=== PATIENT | female | born 1955 | race Caucasian/White ===

== ENCOUNTER → 2017-12-29 | Day surgery (SDC) | payer BC ==
--- NOTE | 2017-12-12 15:16 | Diagnostic Imaging Report ---
EXAMINATION: PA and lateral views of the chest. COMPARISON: None CLINICAL HISTORY: Preadmission for breast surgery DISCUSSION: Lines/tubes: None. Lungs: The lungs are well inflated and clear. No pneumonia or pulmonary edema. Pleura: There is no pleural effusion or pneumothorax. Heart and mediastinum: The cardiomediastinal silhouette is normal. Bones and soft tissues: No acute bony abnormalities. Scattered surgical clips left hemithorax. IMPRESSION: No acute cardiopulmonary abnormalities. Signed by: Dr. Kanu Monroe M.D. on 12/12/2017 3:11 PM
[2017-12-12 15:22] LABS: BASOPHILS # (AUTO) 0.1 (0.0-0.1); BASOPHILS % 0.7 % (0.0-1.0); EOSINOPHILS # (AUTO) 0.1 (0.0-0.4); EOSINOPHILS % 1.5 % (0.0-6.0); HEMATOCRIT 37.9 % (34.2-44.1); HEMOGLOBIN 12.1 g/dL (12.0-16.0); LYMPHOCYTES # (AUTO) 1.4 (1.0-3.2); LYMPHOCYTES % 20.5 % (18.0-39.1); MEAN CORPUSCULAR HEMOGLOBIN 27.4 pg (28-32); MEAN CORPUSCULAR HGB CONC 31.9 g/dL (31-35); MEAN CORPUSCULAR VOLUME 85.9 fL (81-99); MONOCYTES # (AUTO) 0.7 (0.2-0.8); MONOCYTES % 9.7 % (4.4-11.3); NEUTROPHILS # (AUTO) 4.6 (2.1-6.9); NEUTROPHILS % 67.3 % (38.7-80.0); PLATELET COUNT 279 x10e3/uL (140-360); RED BLOOD COUNT 4.41 x10e6/uL (3.6-5.1); RED CELL DISTRIBUTION WIDTH 14.9 % (11.7-14.4)
[2017-12-12 15:42] LABS: INR 1.04; PROTHROMBIN TIME 12.8 seconds (11.9-14.5)
[2017-12-12 15:43] LABS: PARTIAL THROMBOPLASTIN TIME 30.9 seconds (23.8-35.5)
[2017-12-12 15:49] LABS: ALANINE AMINOTRANSFERASE 19 IU/L (0-55); ALBUMIN 3.9 g/dL (3.5-5.0); ALBUMIN/GLOBULIN RATIO 1.1 (0.8-2.0); ALKALINE PHOSPHATASE 119 IU/L (40-150); ANION GAP 13.6 mmol/L (8-16); BLOOD UREA NITROGEN 14 mg/dL (7-26); BUN/CREATININE RATIO 17 (6-25); CALCIUM 9.5 mg/dL (8.4-10.2); CARBON DIOXIDE 25 mmol/L (22-29); CHLORIDE 103 mmol/L (98-107); CREATININE, SERUM 0.84 mg/dL (0.57-1.11); EST GLOMERULAR FILTRATION RATE > 60 ML/MIN (60-); GLUCOSE 95 mg/dL (74-118); POTASSIUM 3.6 mmol/L (3.5-5.1); SODIUM 138 mmol/L (136-145)
[~2017-12-29] MED LIST: ACETAMINOPHEN 1000 MG/100 ML IV ONE; ASPIR 8181 MG PO; BUPIVACAINE 0.25% 30ML SDV INJ ONE; BUPIVACAINE 0.5%/EPI 30 ML SDV INJ ONE; CALCIUM500 MG PO; CEFAZOLIN SOD 1 GM VIAL ONE; CRESTOR10 MG PO; DAILY VALUE1 EACH PO; DEXAMETHASONE SOD PHOS INJ 4 MG/ML VIAL ONE; DYMISTA NASAL S23 GM; EFFEXOR XR 3737.5 MG PO; EPHEDRINE SULFATE INJ 50 MG/10 ML SYR ONE; EPINEPHRINE HCL INJ 1 MG/ML AMP ONE; EXEMESTANE25 MG PO; FENTANYL CITRATE/PF 100MCG/2 ML INJ ONE; FLOVENT DISKUS50 MCG PO; FLUTICASONE; KETAMINE HCL INJ 50 MG/ML 10 ML VIAL ONE; KETOROLAC TROMETHAMINE 30 MG/ML VIAL ONE; LEVOTHYROXINE50 MCG PO; LIDOCAINE HCL 1% 30ML-PF VIAL ONE; MIDAZOLAM HCL 2 MG/2 ML VIAL ONE; ONDANSETRON HCL INJ 2 MG/ML VIAL ONE; PROPOFOL IV EMULSION 10 MG/ML 20 ML VIAL ONE; ROCURONIUM BROMIDE 10 MG/ML 5ML VIAL ONE; SEVOFLURANE INHAL SOLN 250 ML PEN BTL ONE; SINGULAIR10 MG PO; VIT B12 PO; VIT C PO; VIT D3 PO; [UNRECOGNIZED DRUG - OTHER] INH
[2017-12-29 15:50] VITALS: BP 155/86
--- OUTSIDE RECORDS SUMMARY | 2018-01-10 10:27 | XMS REPORT | Continuity of Care Document ---
Author Author [facility] Organization [facility] Address Unknown Phone Unavailable Care Team Providers Care Chief Chemist Name Role Phone MD Janna, Denise PP Unavailable Insurance Providers Payer name Policy type / Coverage type Policy ID Covered republican ID Policy [place] Encounters Encounter Performer Location Date Office Visit Denise Saldivar MD [facility] Oct 10, 2014 Problems Problem Effective Dates Problem Status HYPERCHOLESTEROLEMIA Active HYPOTHYROIDISM Active VITAMIN D DEFICIENCY Oct 02, 2012 Active BRONCHITIS Jan 09, 2013 Inactive ALLERGIC RHINITIS Mar 12, 2013 Active OTH MX&UNS SITE INSECT BITE NONVENOMOUS W/O INF Mar 12, 2013 Inactive ASTHMA Sep 10, 2013 Active IRON DEFICIENCY ANEMIA, UNSPECIFIED Sep 10, 2013 Inactive PAIN IN JOINT INVOLVING ANKLE AND FOOT Mar 14, 2014 Inactive URINARY URGENCY Mar 14, 2014 Active HEALTH MAINTENANCE EXAM Oct 10, 2014 Active Procedures Date Description Comments Sep 19, 2012 mammogram Completed Oct 02, 2012 smoking status never smoker Jun 16, 2006 colonoscopy completed Oct 02, 2010 bone density completed Sep 02, 2012 mammogram completed Sep 02, 2012 vaginal Pap smear results completed Sep 19, 2012 mammogram Completed Jun 16, 2006 colonoscopy normal Sep 10, 2013 smoking status Never smoker Mar 14, 2014 smoking status Former smoker Oct 10, 2014 smoking status Former smoker Medications Medication Instructions Start Date Status PROMETHAZINE-CODEINE 6.25-10 MG/5ML SYRP 1/2 teaspoon bid prn cough Jan 09, 2013 Inactive MEDROL (MIRIAN) 4 MG TABS Take as directed with food x 6 days Jan 09, 2013 Inactive ZITHROMAX TAB 250MG 2 tabs po now, then 1 po q d x 4 days Jan 16, 2013 Inactive PROAIR HFA 108 (90 BASE) MCG/ACT AERS 1-2 puffs Q6 hours prn short of breath/wheezing Jan 09, 2013 Inactive ZITHROMAX TAB 250MG 2 tabs po now, then 1 po q d x 4 days Mar 29, 2013 Inactive MEDROL (MIRIAN) 4 MG TABS Take as directed with food x 6 days Mar 29, 2013 Inactive PROAIR HFA 108 (90 BASE) MCG/ACT AERS Inhale 2 puffs every 4 to 6 hours as needed for shortness of breath, cough or wheezing Jun 07, 2013 Active PREDNISONE 20 MG TABS 2 tablets daily X 5 days Jun 07, 2013 Inactive PREMPRO 0.3-1.5 MG TABS 1 tab by mouth once a day Oct 02, 2012 Active SINGULAIR 10 MG TABS 1 tab by mouth once a day Oct 02, 2012 Active LORATADINE 10 MG TABS 1 po qd Oct 02, 2012 Inactive ASPIRIN EC 81 MG TBEC 1 tab by mouth once a day Oct 02, 2012 Active FLONASE 50 MCG/ACT SUSP 2 sprays in each nostril daily Jan 09, 2013 Active SYMBICORT 80-4.5 MCG/ACT AERO 2 puffs twice daily Jun 07, 2013 Inactive GUAIFENESIN-CODEINE 100-10 MG/5ML SYRP 5ml every 6 hours as needed for cough Jun 07, 2013 Inactive FLOVENT HFA 44 MCG/ACT AERO i inhalation twice a day Sep 10, 2013 Active CRESTOR 20 MG TABS 1 tab by mouth at bed time Jan 09, 2013 Active LEVOTHYROXINE SODIUM 50 MCG TABS 1 tablet daily Mar 12, 2013 Active VESICARE 10 MG TABS 1 tablet daily Apr 10, 2014 Inactive Immunizations Vaccine Date Status dT (Diphtheria and Tetanus) booster given Oct 02, 2008 completed influenza immunization (Flu Vax) has been administered Dec 11, 2012 completed Vital Signs Date Description Test Result Oct 02, 2012 weight E&M - 3141-9 WEIGHT 151 lb Oct 02, 2012 height E&M - 8302-2 HEIGHT 65 in Oct 02, 2012 temperature E&M TEMPERATURE 97.0 deg f Oct 02, 2012 blood pressure, systolic - 8480-6 BP SYSTOLIC 130 mm Hg Oct 02, 2012 blood pressure, diastolic - 8462-4 BP DIASTOLIC 80 mm Hg Oct 02, 2012 pulse rate E&M - 8867-4 PULSE RATE 78 /min Jan 09, 2013 weight E&M - 3141-9 WEIGHT 148.25 lb Jan 09, 2013 blood pressure, systolic - 8480-6 BP SYSTOLIC 130 mm Hg Jan 09, 2013 blood pressure, diastolic - 8462-4 BP DIASTOLIC 80 mm Hg Jan 09, 2013 pulse rate E&M - 8867-4 PULSE RATE 82 /min Jan 09, 2013 temperature E&M TEMPERATURE 96.1 deg f Mar 12, 2013 weight E&M - 3141-9 WEIGHT 158 lb Mar 12, 2013 temperature E&M TEMPERATURE 96.0 deg f Mar 12, 2013 blood pressure, systolic - 8480-6 BP SYSTOLIC 128 mm Hg Mar 12, 2013 blood pressure, diastolic - 8462-4 BP DIASTOLIC 78 mm Hg Mar 12, 2013 pulse rate E&M - 8867-4 PULSE RATE 72 /min Mar 29, 2013 weight E&M - 3141-9 WEIGHT 156 lb Mar 29, 2013 blood pressure, systolic - 8480-6 BP SYSTOLIC 142 mm Hg Mar 29, 2013 blood pressure, diastolic - 8462-4 BP DIASTOLIC 80 mm Hg Mar 29, 2013 temperature E&M TEMPERATURE 97.9 deg f Mar 29, 2013 pulse rate E&M - 8867-4 PULSE RATE 98 /min Jun 07, 2013 weight E&M - 3141-9 WEIGHT 160.50 lb Jun 07, 2013 temperature E&M TEMPERATURE 96.3 deg f Jun 07, 2013 blood pressure, systolic - 8480-6 BP SYSTOLIC 139 mm Hg Jun 07, 2013 blood pressure, diastolic - 8462-4 BP DIASTOLIC 89 mm Hg Jun 07, 2013 pulse rate E&M - 8867-4 PULSE RATE 84 /min Sep 10, 2013 weight E&M - 3141-9 WEIGHT 162.4 lb Sep 10, 2013 temperature E&M TEMPERATURE 96.7 deg f Sep 10, 2013 pulse rate E&M - 8867-4 PULSE RATE 85 /min Sep 10, 2013 blood pressure, systolic - 8480-6 BP SYSTOLIC 122 mm Hg Sep 10, 2013 blood pressure, diastolic - 8462-4 BP DIASTOLIC 78 mm Hg Mar 14, 2014 weight E&M - 3141-9 WEIGHT 171 lb Mar 14, 2014 temperature E&M TEMPERATURE 98.3 deg f Mar 14, 2014 respiratory rate E&M - 9279-1 RESP RATE 20 /min Mar 14, 2014 pulse rate E&M - 8867-4 PULSE RATE 96 /min Mar 14, 2014 blood pressure, systolic - 8480-6 BP SYSTOLIC 130 mm Hg Mar 14, 2014 blood pressure, diastolic - 8462-4 BP DIASTOLIC 80 mm Hg Oct 10, 2014 height E&M - 8302-2 HEIGHT 65 in Oct 10, 2014 weight E&M - 3141-9 WEIGHT 158 lb Oct 10, 2014 temperature E&M TEMPERATURE 98.7 deg f Oct 10, 2014 blood pressure, systolic - 8480-6 BP SYSTOLIC 129 mm Hg Oct 10, 2014 blood pressure, diastolic - 8462-4 BP DIASTOLIC 83 mm Hg Oct 10, 2014 pulse rate E&M - 8867-4 PULSE RATE 74 /min Results Date Description Test Name Value Reference Interpretation Status Oct 02, 2012 hemoglobin, blood HGB 12.4 g/dL 12.0-16.0 Oct 02, 2012 hematocrit, blood HCT 38.1 % 36.0-48.0 Oct 02, 2012 platelet count PLATELETS 204 K/CMM /mm3 133-450 Oct 02, 2012 cholesterol, serum CHOLESTEROL 175 mg/dl <=199 Oct 02, 2012 triglyceride, serum, fasting TRIGLYCERIDE 94 mg/dl <=149 Oct 02, 2012 HDL cholesterol, serum HDL 60 mg/dl >=61 Low Oct 02, 2012 LDL cholesterol, serum LDL 96 mg/dl <=99 Oct 02, 2012 sodium, serum SODIUM 141 MEQ/L mmol/L 135-145 Oct 02, 2012 potassium, serum POTASSIUM 4.0 MEQ/L mmol/L 3.5-5.1 Oct 02, 2012 creatinine, serum CREATININE 0.8 mg/dL 0.5-1.4 Oct 02, 2012 urea nitrogen, blood BUN 18 mg/dL 7-Oct 02, 2012 urea nitrogen/creatinine ratio, serum BUN/CREAT 22 null 6-25 Oct 02, 2012 albumin, serum ALBUMIN 3.7 g/dL 3.5-5.0 Oct 02, 2012 calcium, serum CALCIUM 8.4 mg/dL 8.5-10.5 Low Oct 02, 2012 alanine aminotransferase (SGPT), serum SGPT (ALT) 19 U/L 0-65 Oct 02, 2012 aspartate aminotransferase (SGOT), serum SGOT (AST) 16 U/L 0-37 Oct 02, 2012 alkaline phosphatase, serum ALK PHOS 104 U/L 39-136 Oct 02, 2012 thyroxine, serum, free T4, FREE 1.01 ng/dl 0.76-1.46 Oct 02, 2012 thyroid stimulating hormone, serum TSH 2.150 uIU/mL 0.360-3.740 Mar 12, 2013 cholesterol, serum CHOLESTEROL 210 mg/dl <=199 High Mar 12, 2013 triglyceride, serum, fasting TRIGLYCERIDE 130 mg/dl <=149 Mar 12, 2013 HDL cholesterol, serum HDL 77 mg/dl >=61 Mar 12, 2013 LDL cholesterol, serum LDL 107 mg/dl <=99 High Mar 12, 2013 sodium, serum SODIUM 141 MEQ/L mmol/L 135-145 Mar 12, 2013 potassium, serum POTASSIUM 4.0 MEQ/L mmol/L 3.5-5.1 Mar 12, 2013 creatinine, serum CREATININE 0.5 mg/dL 0.5-1.4 Mar 12, 2013 urea nitrogen, blood BUN 15 mg/dL 7-Mar 12, 2013 urea nitrogen/creatinine ratio, serum BUN/CREAT 30 null 6-25 High Mar 12, 2013 albumin, serum ALBUMIN 3.8 g/dL 3.5-5.0 Mar 12, 2013 calcium, serum CALCIUM 9.1 mg/dL 8.5-10.5 Mar 12, 2013 alanine aminotransferase (SGPT), serum SGPT (ALT) 26 U/L 0-65 Mar 12, 2013 aspartate aminotransferase (SGOT), serum SGOT (AST) 21 U/L 0-37 Mar 12, 2013 alkaline phosphatase, serum ALK PHOS 97 U/L 39-136 Mar 12, 2013 thyroid stimulating hormone, serum TSH 0.662 uIU/mL 0.360-3.740 Sep 10, 2013 cholesterol, serum CHOLESTEROL 166 mg/dl <=199 Sep 10, 2013 triglyceride, serum, fasting TRIGLYCERIDE 123 mg/dl <=149 Sep 10, 2013 HDL cholesterol, serum HDL 70 mg/dl >=61 Sep 10, 2013 LDL cholesterol, serum LDL 71 mg/dl <=99 Sep 10, 2013 sodium, serum SODIUM 139 MEQ/L mmol/L 135-145 Sep 10, 2013 potassium, serum POTASSIUM 4.2 MEQ/L mmol/L 3.5-5.1 Sep 10, 2013 creatinine, serum CREATININE 0.8 mg/dL 0.5-1.4 Sep 10, 2013 urea nitrogen, blood BUN 19 mg/dL 7-Sep 10, 2013 urea nitrogen/creatinine ratio, serum BUN/CREAT 24 null 6-25 Sep 10, 2013 albumin, serum ALBUMIN 3.9 g/dL 3.5-5.0 Sep 10, 2013 calcium, serum CALCIUM 8.9 mg/dL 8.5-10.5 Sep 10, 2013 alanine aminotransferase (SGPT), serum SGPT (ALT) 18 U/L 0-65 Sep 10, 2013 aspartate aminotransferase (SGOT), serum SGOT (AST) 17 U/L 0-37 Sep 10, 2013 alkaline phosphatase, serum ALK PHOS 83 U/L 39-136 Sep 10, 2013 ferritin, serum FERRITIN 29 ng/mL 5-204 Sep 10, 2013 thyroxine, serum, free T4, FREE 1.03 ng/dl 0.76-1.46 Sep 10, 2013 thyroid stimulating hormone, serum TSH 4.040 uIU/mL 0.360-3.740 High Mar 14, 2014 sodium, serum SODIUM 140 MEQ/L mmol/L 135-145 Mar 14, 2014 potassium, serum POTASSIUM 3.9 MEQ/L mmol/L 3.5-5.1 Mar 14, 2014 creatinine, serum CREATININE 0.9 mg/dL 0.5-1.4 Mar 14, 2014 urea nitrogen, blood BUN 11 mg/dL 7-22 Mar 14, 2014 urea nitrogen/creatinine ratio, serum BUN/CREAT 12 null 6-25 Mar 14, 2014 albumin, serum ALBUMIN 3.5 g/dL 3.5-5.0 Mar 14, 2014 calcium, serum CALCIUM 8.6 mg/dL 8.5-10.5 Mar 14, 2014 alanine aminotransferase (SGPT), serum SGPT (ALT) 26 U/L 0-65 Mar 14, 2014 aspartate aminotransferase (SGOT), serum SGOT (AST) 17 U/L 0-37 Mar 14, 2014 alkaline phosphatase, serum ALK PHOS 91 U/L 39-136 Mar 14, 2014 thyroxine, serum, free T4, FREE 1.11 ng/dl 0.76-1.46 Mar 14, 2014 thyroid stimulating hormone, serum TSH 2.660 uIU/mL 0.360-3.740 Sep 02, 2012 vaginal Pap smear results PAP SMEAR completed null
--- OUTSIDE RECORDS SUMMARY | 2018-01-10 10:27 | XMS REPORT | Continuity of Care Document ---
Author Author [facility] Interface Address Unknown Phone Unavailable Problems Problem Status Onset Date Classification Date Reported Comments Source UNK Active 11/17/2016 [facility] Active 11/16/2016 [facility] FOOT Active 01/27/2016 [facility] M19.071 [facility]27[facility] 10/10/2014 Condition 10/10/2014 [facility] PAIN IN JOINT INVOLVING ANKLE AND FOOT Inactive 03/14/2014 Condition 10/10/2014 [facility] URINARY URGENCY Active 03/14/2014 Condition 10/10/2014 [facility] ASTHMA Active 09/10/2013 Condition 10/10/2014 [facility] IRON DEFICIENCY ANEMIA, UNSPECIFIED Inactive 09/10/2013 Condition 10/10/2014 [facility] Asthma<sup>2</sup> Active 09/10/2013 Problem 09/28/2017 Data migrated from [employer] on 08/24/14. [facility] ALLERGIC RHINITIS Active 03/12/2013 Condition 10/10/2014 [facility] OTH MX&UNS SITE INSECT BITE NONVENOMOUS W/O INF Inactive 03/12/2013 Condition 10/10/2014 [facility] Allergic rhinitis<sup>1</sup> Active 03/12/2013 Problem 09/28/2017 Data migrated from [employer] on 08/24/14. [facility] BRONCHITIS Inactive 01/09/2013 Condition 10/10/2014 [facility] Bronchitis<sup>3, 4, 5, 6</sup> Resolved 01/09/2013 Problem 09/28/2017 Data migrated from [facility] on 10/11/14. [facility] VITAMIN D DEFICIENCY Active 10/02/2012 Condition 10/10/2014 [facility] Vitamin D deficiency<sup>9</sup> Active 10/02/2012 Problem 09/28/2017 Data migrated from [employer] on 08/24/14. [facility] HYPERCHOLESTEROLEMIA Active Condition 10/10/2014 [facility] HYPOTHYROIDISM Active Condition 10/10/2014 [facility] Hypercholesterolemia<sup>7</sup> Active Problem 09/28/2017 Data migrated from [employer] on 08/24/14. [facility] Hypothyroidism<sup>8</sup> Active Problem 09/28/2017 Data migrated from [employer] on 08/24/14. [facility] Breast cancer Active Problem 09/28/2017 [facility] Pneumonia Resolved Problem 09/28/2017 [facility] R06.02 Active [facility] Medications Medication Details Route Status Patient Instructions Ordering Provider Order Date Source levothyroxine 50 mcg (0.05 mg) oral tablet 50 microgram=1 tab, PO, Daily, # 90 tab, 1 Refill(s), Pharmacy: [facility] [id number] Active 06/22/2017 [facility] Rosuvastatin calcium 20 MG Oral Tablet [Crestor] 20 mg=1 tab, PO, Bedtime, # 90 tab, 1 Refill(s), Pharmacy: [facility] [id number] Active 06/22/2017 [facility] Rosuvastatin calcium 20 MG Oral Tablet [Crestor] 20 mg=1 tab, PO, Bedtime, # 90 tab, 0 Refill(s), Pharmacy: [facility] [id number] Active 03/29/2017 [facility] Meperidine 12.5 mg, Route: IVP, Q30Min, Dosing Weight 71.818, kg, PRN Other -See Comment, For shivering, Start date: 12/02/16 19:41:00 CDT, Duration: 2 doses or times, Stop date: Limited # of times Inactive 12/03/2016 [facility] Dexamethasone 4 mg, Route: IVP, ONCE, Dosing Weight 71.818, kg, PRN Nausea & Vomiting, Start date: 12/02/16 19:41:00 CDT Inactive 12/03/2016 [facility] Ondansetron 4 mg, Route: IVP, ONCE, Dosing Weight 71.818, kg, PRN Nausea & Vomiting, Start date: 12/02/16 19:41:00 CDT Inactive 12/03/2016 [facility] Acetaminophen 1,000 mg, Route: PO, Drug form: TAB, ONCE, Dosing Weight 71.818, kg, PRN Pain Score 1-3, Start date: 12/02/16 19:41:00 CDT, Duration: 1 doses or times, Stop date: Limited # of times Inactive 12/03/2016 [facility] Oxycodone 5 mg, Route: PO, Drug form: TAB, Q4H, Dosing Weight 71.818, kg, PRN Pain Score 4-6, Start date: 12/02/16 19:41:00 CDT, Duration: 30 day, Stop date: 01/01/17 19:40:00 CDT Inactive 12/03/2016 [facility] Fentanyl 25 microgram, Route: IVP, Q5Min, Dosing Weight 71.818, kg, PRN Pain Score 4-6, Priority: Routine, Start date: 12/02/16 19:41:00 CDT, Duration: 4 doses or times, Stop date: Limited # of times Inactive 12/03/2016 [facility] Morphine 2 mg, Route: IVP, Q5Min, Dosing Weight 71.818, kg, PRN Pain Score 4-6, Start date: 12/02/16 19:41:00 CDT, Duration: 5 doses or times, Stop date: Limited # of times Inactive 12/03/2016 [facility] Flumazenil 0.2 mg, Route: IVP, PRN, Dosing Weight 71.818, kg, PRN Benzodiazepine Reversal, Initial dose, Start date: 12/02/16 19:41:00 CDT, Duration: 30 day, Stop date: 01/01/17 19:40:00 CDT Inactive 12/03/2016 [facility] Hydromorphone 0.5 mg, Route: IVP, Q5Min, Dosing Weight 71.818, kg, PRN Pain Score 7-10, Start date: 12/02/16 19:41:00 CDT, Duration: 4 doses or times, Stop date: Limited # of times Inactive 12/03/2016 [facility] Diphenhydramine 12.5 mg, Route: IVP, Drug form: INJ, Q6H, Dosing Weight 71.818, kg, PRN Itching, Start date: 12/02/16 19:41:00 CDT, Duration: 30 day, Stop date: 01/01/17 19:40:00 CDT Inactive 12/03/2016 [facility] Albuterol 0.83 MG/ML Inhalant Solution 2.49 mg, Route: NEB, Q20Min, Dosing Weight 71.818, kg, PRN Wheezing, Priority: STAT, Start date: 12/02/16 19:41:00 CDT, Duration: 30 day, Stop date: 01/01/17 19:40:00 CDT Inactive 12/03/2016 [facility] Naloxone 0.4 mg, Route: IVP, Q2MIN, Dosing Weight 71.818, kg, PRN Narcotic Reversal, Start date: 12/02/16 19:41:00 CDT, Duration: 8 doses or times, Stop date: Limited # of times Inactive 12/03/2016 [facility] Calcium Chloride 0.0014 MEQ/ML / Potassium Chloride 0.004 MEQ/ML / Sodium Chloride 0.103 MEQ/ML / Sodium Lactate 0.028 MEQ/ML Injectable Solution 1,000 mL, Rate: 125 ml/hr, Infuse over: 8 hr, Route: IV, Dosing Weight 71.818 kg, Total Volume: 1,000, Start date: 12/02/16 19:41:00 CDT, Duration: 30 day, Stop date: 01/01/17 19:40:00 CDT Inactive 12/03/2016 [facility] esmolol 10 mg, Route: IVP, Q5Min, Dosing Weight 71.818, kg, PRN Other -See Comment, Start date: 12/02/16 19:41:00 CDT, Duration: 5 doses or times, Stop date: Limited # of times Inactive 12/03/2016 [facility] Hydralazine 10 mg, Route: IVP, Q20Min, Dosing Weight 71.818, kg, PRN Elevated BP, Start date: 12/02/16 19:41:00 CDT, Duration: 2 doses or times, Stop date: Limited # of times Inactive 12/03/2016 [facility] Labetalol 10 mg, Route: IVP, Q5Min, Dosing Weight 71.818, kg, PRN Elevated BP, Start date: 12/02/16 19:41:00 CDT, Duration: 5 doses or times, Stop date: Limited # of times Inactive 12/03/2016 [facility] hydromorphone (ANES) Route: IV, Drug form: INJ, ONCE, Stop date: 12/02/16 18:58:00 CDT Inactive 12/02/2016 [facility] dexamethasone (ANES) Route: IV, Drug form: INJ, ONCE, Stop date: 12/02/16 17:43:00 CDT Inactive 12/02/2016 [facility] rocuronium (ANES) Route: IV, Drug form: INJ, ONCE, Stop date: 12/02/16 17:43:00 CDT Inactive 12/02/2016 [facility] propofol (ANES) Route: IV, Drug form: INJ, ONCE, Stop date: 12/02/16 17:43:00 CDT Inactive 12/02/2016 [facility] lidocaine (ANES) Route: IV, Drug form: INJ, ONCE, Stop date: 12/02/16 17:43:00 CDT Inactive 12/02/2016 [facility] fentaNYL (ANES) Route: IV, Drug form: INJ, ONCE, Stop date: 12/02/16 17:38:00 CDT Inactive 12/02/2016 [facility] ondansetron (ANES) Route: IV, Drug form: INJ, ONCE, Stop date: 12/02/16 17:38:00 CDT Inactive 12/02/2016 [facility] midazolam (ANES) Route: IV, Drug form: SOLN, ONCE, Stop date: 12/02/16 17:38:00 CDT Inactive 12/02/2016 [facility] acetaminophen (ANES) (ANES) Route: IV, Drug form: INJ, Start date: 12/02/16 17:28:00 CDT, Stop date: 12/02/16 18:28:00 CDT Inactive 12/02/2016 [facility] ceFAZolin (ANES) (ANES) Route: IV, Drug form: INJ, Start date: 12/02/16 16:58:00 CDT, Stop date: 12/02/16 17:58:00 CDT Inactive 12/02/2016 [facility] LR 1000 mL INJ (ANES) Route: IV, Total Volume: 1,000, Start date: 12/02/16 16:45:00 CDT, Stop date: 12/02/16 17:45:00 CDT Inactive 12/02/2016 [facility] methylene blue 10 mg, 2 mL, Route: TOP, Drug form: SOLN, ONCE, Dosing Weight 71.818, kg, Start date: 12/02/16 12:46:00 CDT, Stop date: 12/02/16 12:46:00 CDTNotes: (Same as :J Luis) MEDICATION WASTE Pr oduct Size: 50 mg Product Wasted: ___ mg Inactive 12/02/2016 [facility] Albuterol 0.833 MG/ML / Ipratropium [place] 0.167 MG/ML Inhalant Solution 3 mL, Route: NEB, Drug Form: SOLN, Dosing Weight 71.818, kg, ONCE, STAT, Start date: 12/02/16 10:36:00 CDT, Stop date: 12/02/16 10:36:00 CDTNotes: (Same as: Kristina) Inactive 12/02/2016 [facility] sodium chloride 0.9% 500 ml INJ 500 mL 500 mL, Rate: 25 ml/hr, Infuse over: 20 hr, Route: IV, Dosing Weight 71.818 kg, Total Volume: 500, Start date: 12/02/16 10:36:00 CDT, Duration: 1 day, Stop date: 12/03/16 10:35:00 CDT Inactive 12/02/2016 [facility] Calcium Chloride 0.0014 MEQ/ML / Potassium Chloride 0.004 MEQ/ML / Sodium Chloride 0.103 MEQ/ML / Sodium Lactate 0.028 MEQ/ML Injectable Solution 1,000 mL, Rate: 25 ml/hr, Infuse over: 40 hr, Route: IV, Dosing Weight 71.818 kg, Total Volume: 1,000, Start date: 12/02/16 10:36:00 CDT, Duration: 1 day, Stop date: 12/03/16 10:35:00 CDT Inactive 12/02/2016 [facility] VESICARE 10 MG TABS 1 tablet daily No Longer Active 04/10/2014 [facility] FLOVENT HFA 44 MCG/ACT AERO i inhalation twice a day Active 09/10/2013 [facility] FLOVENT HFA 44 MCG/ACT AERO i inhalation twice a day Active 09/10/2013 [facility] PROAIR HFA 108 (90 BASE) MCG/ACT AERS Inhale 2 puffs every 4 to 6 hours as needed for shortness of breath, cough or wheezing Active 06/07/2013 [facility] PREDNISONE 20 MG TABS 2 tablets daily X 5 days No Longer Active 06/07/2013 [facility] SYMBICORT 80-4.5 MCG/ACT AERO 2 puffs twice daily No Longer Active 06/07/2013 [facility] GUAIFENESIN-CODEINE 100-10 MG/5ML SYRP 5ml every 6 hours as needed for cough No Longer Active 06/07/2013 [facility] PROAIR HFA 108 (90 BASE) MCG/ACT AERS Inhale 2 puffs every 4 to 6 hours as needed for shortness of breath, cough or wheezing Active 06/07/2013 [facility] PREDNISONE 20 MG TABS 2 tablets daily X 5 days No Longer Active 06/07/2013 [facility] PREDNISONE 20 MG TABS 2 tablets daily X 5 days No Longer Active 06/07/2013 [facility] ZITHROMAX TAB 250MG 2 tabs po now, then 1 po q d x 4 days No Longer Active 03/29/2013 [facility] MEDROL (MIRIAN) 4 MG TABS Take as directed with food x 6 days No Longer Active 03/29/2013 [facility] LEVOTHYROXINE SODIUM 25 MCG TABS Take one tablet by mouth daily. Active 03/12/2013 [facility] LEVOTHYROXINE SODIUM 50 MCG TABS 1 tablet daily Active 03/12/2013 [facility] LEVOTHYROXINE SODIUM 50 MCG TABS 1 tablet daily Active 03/12/2013 [facility] ZITHROMAX TAB 250MG 2 tabs po now, then 1 po q d x 4 days No Longer Active 01/16/2013 [facility] PROMETHAZINE-CODEINE 6.25-10 MG/5ML SYRP 1/2 teaspoon bid prn cough No Longer Active 01/09/2013 [facility] MEDROL (MIRIAN) 4 MG TABS Take as directed with food x 6 days No Longer Active 01/09/2013 [facility] PROAIR HFA 108 (90 BASE) MCG/ACT AERS 1-2 puffs Q6 hours prn short of breath/wheezing No Longer Active 01/09/2013 [facility] CRESTOR 20 MG TABS 1 tab by mouth at bed time Active 01/09/2013 [facility] FLONASE 50 MCG/ACT SUSP 2 sprays in each nostril daily Active 01/09/2013 [facility] PROMETHAZINE-CODEINE 6.25-10 MG/5ML SYRP 1/2 teaspoon bid prn cough No Longer Active 01/09/2013 [facility] PROAIR HFA 108 (90 BASE) MCG/ACT AERS 1-2 puffs Q6 hours prn short of breath/wheezing No Longer Active 01/09/2013 [facility] CRESTOR 20 MG TABS 1 tab by mouth at bed time Active 01/09/2013 [facility] FLONASE 50 MCG/ACT SUSP 2 sprays in each nostril daily Active 01/09/2013 [facility] CRESTOR 20 MG TABS 1 tab by mouth at bed time Active 01/09/2013 [facility] PREMPRO 0.3-1.5 MG TABS 1 tab by mouth once a day Active 10/02/2012 [facility] SINGULAIR 10 MG TABS 1 tab by mouth once a day Active 10/02/2012 [facility] LORATADINE 10 MG TABS 1 po qd No Longer Active 10/02/2012 [facility] ASPIRIN EC 81 MG TBEC 1 tab by mouth once a day Active 10/02/2012 [facility] PREMPRO 0.3-1.5 MG TABS 1 tab by mouth once a day Active 10/02/2012 [facility] LORATADINE 10 MG TABS 1 po qd No Longer Active 10/02/2012 [facility] SINGULAIR 10 MG TABS 1 tab by mouth once a day Active 10/02/2012 [facility] LORATADINE 10 MG TABS 1 po qd No Longer Active 10/02/2012 [facility] Allergies, Adverse Reactions, Alerts Substance Category Reaction Severity Reaction type Status Date Reported Comments Source Immunizations Immunization Date Given Site Status Last Updated Comments Source influenza immunization (Flu Vax) has been administered 12/11/2012 completed [facility] dT (Diphtheria and Tetanus) booster 10/02/2008 completed [facility] dT (Diphtheria and Tetanus) booster given 10/02/2008 completed [facility] Results Order Name Results Value Reference Range Date Interpretation Comments Source Breast Complete Pb US Breast Complete Pb US COMPLETE ULTRASOUND OF BOTH BREASTS AND AXILLA: 08/18/2017 CLINICAL: /C50.412 Malignant Neoplasm Of Upper-Outer Quadrant Of Left Female Breast /C50.412 Malignant Neoplasm Of Upper-Outer Quadrant Of Left Female Breast. History: See mammogram report. COMPARISON:Comparison is made to exams dated: 10/20/2016 mammogram, 10/13/2016 mammogram, 10/24/2015 mammogram, 10/13/2015 mammogram, 10/09/2014 mammogram, and 10/02/2013 mammogram - [facility]. TECHNIQUE: Current study was also evaluated with a Computer Aided Detection (CAD) system. Ultrasound of both breasts four quadrants, retroareolar, and axilla regions was performed. FINDINGS: There is a post surgical scar in the left breast at 1 o'clock anterior depth with a 6 mm seroma. This correlates with mammography findings and as palpated. Color flow imaging demonstrates that there is no vascularity present. No abnormalities were seen sonographically in the right breast or either axilla. IMPRESSION: PROBABLY BENIGN The reported lump at left 1:00 likely correlates to post-surgical scar with a 6 mm seroma. A follow-up left mammogram and an ultrasound in 3 months is recommended.(11/17/2017) This exam was interpreted at [id number] for [facility]. Christopher Perez M.D. mt/:08/23/2017 14:35:26 Vending Machine Repairer(s): Dorita Buchanan, [facility]; Judith Sood, [facility] letter sent: BI-RADS 3 Ultrasound BI-RADS: 3 Probably benign 08/18/2017 - - Read by: Christopher Perez MD Dictated Date/time: 08/23/17 14:35 Electronically Signed by: Christopher Perez MD 08/23/17 14:35 FINAL REPORT [facility] Breast Mammo Diag PB incl CAD MA Breast Mammo Diag PB incl CAD MA BILATERAL DIGITAL DIAGNOSTIC MAMMOGRAM WITH CAD: 08/18/2017 CLINICAL: /C50.412 Malignant Neoplasm Of Upper-Outer Quadrant Of Left Female Breast /C50.412 Malignant Neoplasm Of Upper-Outer Quadrant Of Left Female Breast. Left breast cancer with breast conservation treatment in . Left 1:00 lump in region of surgery. Current study was evaluated with a Computer Aided Detection (CAD) system. COMPARISON:Comparison is made to exams dated: 10/20/2016 mammogram, 10/13/2016 mammogram, 10/24/2015 mammogram, 10/13/2015 mammogram, 10/09/2014 mammogram, and 10/02/2013 mammogram - [facility]. TECHNIQUE: Mammographic views were obtained using digital acquisition. Current study was also evaluated with a Computer Aided Detection (CAD) system. FINDINGS: The tissue of both breasts is heterogeneously dense, which could obscure detection of small masses. There is an asymmetry in the left breast middle depth superior region seen on the mediolateral oblique view only. This finding is approximately 4 cm from the nipple. There are postoperative changes and stable benign calccifications. No other significant masses, calcifications, or other findings are seen in either breast. IMPRESSION: INCOMPLETE: NEEDS ADDITIONAL IMAGING EVALUATION PLEASE SEE SAME DAY ULTRASOUND REPORT. This exam was interpreted at [id number] for [facility]. Christopher Perez M.D. mt/:08/23/2017 14:35:26 Vending Machine Repairer(s): Dorita Buchanan, [facility]; Judith Sood, [facility] letter sent: BI-RADS 3 Mammogram BI-RADS: 0 Indeterminate 08/18/2017 - - Read by: Christopher Perez MD Dictated Date/time: 08/23/17 14:35 Electronically Signed by: Christopher Perez MD 08/23/17 14:35 FINAL REPORT [facility] Bone Density [employer] MA Bone Density [employer] MA BONE DENSITY ASSESSMENT: 08/18/2017 CLINICAL DATA: Post menopausal. Taking calcium and vitamin D supplements. /C50.412 Malignant Neoplasm Of Upper-Outer Quadrant Of Left Female Breast RISK FACTORS: race. DISEASE HISTORY: Cancer history. FINDINGS: Bone density evaluation was performed 08/18/2017 on the right femur neck using a Hologic unit. The BMD average for the exam is 0.894 g/cm2. The T-score is 0.40 and the Z-score is 1.70. These values indicate 127.0% for age-matched controls. This matches the World Health Organization's criteria for normal bone density and places the patient within normal limits of fracture risk. An additional bone density evaluation was performed 08/18/2017 on the left femur neck using a Hologic unit. The BMD average for the exam is 0.843 g/cm2. The T- score is -0.10 and the Z-score is 1.30. These values indicate 120.0% for age- matched controls. This matches the World Health Organization's criteria for normal bone density and places the patient within normal limits of fracture risk. An additional bone density evaluation was performed 08/18/2017 on the right hip using a Hologic unit. The BMD average for the exam is 0.978 g/cm2. The T-score is 0.30 and the Z-score is 1.30. These values indicate 119.0% for age-matched controls. This matches the World Health Organization's criteria for normal bone density and places the patient within normal limits of fracture risk. An additional bone density evaluation was performed 08/18/2017 on the left hip using a Hologic unit. The BMD average for the exam is 0.987 g/cm2. The T-score is 0.40 and the Z-score is 1.40. These values indicate 120.0% for age-matched controls. This matches the World Health Organization's criteria for normal bone density and places the patient within normal limits of fracture risk. An additional bone density evaluation was performed 08/18/2017 on the AP L1-L4 region of spine using a Hologic unit. The BMD average for the exam is 0.968 g/cm2. The T-score is -0.70 and the Z-score is 0.70. These values indicate 109.0% for age-matched controls. This matches the World Health Organization's criteria for normal bone density and places the patient within normal limits of fracture risk. IMPRESSION: BONE DENSITY WITHIN NORMAL LIMITS Patient is at normal risk for fracture. Compared to BMD of prior exam, there has been a DECREASE IN BONE DENSITY IN THE SPINE AND NO SIGNIFICANT CHANGE IN THE BILATERAL HIPS. This exam was interpreted at [id number] for [facility]. Pratibha Magaña M.D. sg/:08/19/2017 12:35:33 Vending Machine Repairer(s): Celia Simon [employer] [facility] 08/18/2017 - - Read by: Partibha Magaña MD Dictated Date/time: 08/19/17 12:35 Electronically Signed by: Pratibha Magaña MD 08/19/17 12:35 FINAL REPORT [facility] Breast specimen surgery Breast specimen surgery - BREAST SPECIMEN SURGERY SPECIMEN LEFT BREAST: 12/02/2016 CLINICAL: /N63 Unspecified Lump In Breast. Correlation is made to exams dated: 11/08/2016 breast MRI, 10/25/2016 stereotactic biopsy, 10/20/2016 mammogram, 10/20/2016 ultrasound, 10/13/2016 mammogram and 10/24/2015 ultrasound - [facility]. A surgical specimen was imaged for the previous biopsy site located in the left breast at 12 o'clock middle depth. IMPRESSION: SPECIMEN The imaged specimen includes a biopsy clip and the distal portion of the localization wire. Follow-up with ACR/ACS guidelines. Christopher Perez M.D., mt/nikita:12/08/2016 11:48:52 Vending Machine Repairer: Brooke Anna R.D.M.S, [facility] This exam was dictated and interpreted by [id number] for [facility]. 12/02/2016 - - Read by: Christopher Perez MD Dictated Date/time: 12/08/16 11:48 Electronically Signed by: Christopher Perez MD 12/08/16 11:48 FINAL REPORT [facility] CHEM PANEL A/G Ratio 1.0 0.7 - 1.6 12/02/2016 [facility] CHEM PANEL Globulin 3.9 g/dL 2.7 - 4.2 12/02/2016 [facility] CHEM PANEL AGAP 11.7 meq/L 10.0 - 20.0 12/02/2016 [facility] CHEM PANEL B/C Ratio 16 6 - 25 12/02/2016 [facility] CHEM PANEL eGFR 90 mL/min/1.73m2 12/02/2016 Result Comment: The eGFR is calculated using the CKD-EPI formula. In most young, healthy individuals the eGFR will be >90 mL/min/1.73m2. The eGFR declines with age. An eGFR of 60-89 may be normal in some populations, particularly the elderly, for whom the CKD-EPI formula has not been extensively validated. Use of the eGFR is not recommended in the following populations: Individuals with unstable creatinine concentrations, including patients and those with serious co-morbid conditions. Patients with extremes in muscle mass or diet. The data above are obtained from the National Kidney Disease Education Program (NKDEP) which additionally recommends that when the eGFR is used in patients with extremes of body mass index for purposes of drug dosing, the eGFR should be multiplied by the estimated BMI. [facility] CHEM PANEL Calcium Lvl 9.1 mg/dL 8.5 - 10.5 12/02/2016 [facility] CHEM PANEL Potassium Lvl 3.7 meq/L 3.5 - 5.1 12/02/2016 [facility] CHEM PANEL CO2 28 meq/L 24 - 32 12/02/2016 [facility] CHEM PANEL Chloride Lvl 106 meq/L 95 - 109 12/02/2016 [facility] CHEM PANEL Total Protein 7.7 g/dL 6.4 - 8.4 12/02/2016 [facility] CHEM PANEL Albumin Lvl 3.8 g/dL 3.5 - 5.0 12/02/2016 [facility] CHEM PANEL ALT 40 unit/L 0 - 65 12/02/2016 [facility] CHEM PANEL AST 30 unit/L 0 - 37 12/02/2016 [facility] CHEM PANEL Alk Phos 95 unit/L 39 - 136 12/02/2016 [facility] CHEM PANEL Bili Total 0.4 mg/dL 0.2 - 1.3 12/02/2016 [facility] CHEM PANEL BUN 12 mg/dL 7 - 22 12/02/2016 [facility] CHEM PANEL Sodium Lvl 142 meq/L 135 - 145 12/02/2016 [facility] CHEM PANEL Glucose Lvl 90 mg/dL 70 - 99 12/02/2016 [facility] CHEM PANEL Creatinine Lvl 0.73 mg/dL 0.50 - 1.40 12/02/2016 [facility] HEMATOLOGY PTT 30.6 s 22.9 - 35.8 12/02/2016 [facility] HEMATOLOGY INR 0.92 0.85 - 1.17 12/02/2016 [facility] HEMATOLOGY PT 12.6 s 12.0 - 14.7 12/02/2016 [facility] HEMATOLOGY RDW 14.0 % 11.5 - 14.5 12/02/2016 [facility] HEMATOLOGY Platelet 256 K/CMM 133 - 450 12/02/2016 [facility] MCHC 33.4 g/dL 32.0 - 36.0 12/02/2016 [facility] MPV 7.7 fL 7.4 - 10.4 12/02/2016 [facility] Hct 40.1 % 36.0 - 48.0 12/02/2016 [facility] MCH 27.9 pg 27.0 - 31.0 12/02/2016 [facility] MCV 83.4 fL 80.0 - 98.0 12/02/2016 [facility] Hgb 13.4 g/dL 12.0 - 16.0 12/02/2016 [facility] RBC 4.81 M/CMM 4.20 - 5.40 12/02/2016 [facility] WBC 11.6 K/CMM 3.7 - 10.4 12/02/2016 [facility] Monocytes # 0.5 K/CMM 0.0 - 0.8 12/02/2016 [facility] Basophils # 0.1 K/CMM 0.0 - 0.2 12/02/2016 [facility] Basophils 0.8 % 0.0 - 1.0 12/02/2016 [facility] Lymphocytes # 1.5 K/CMM 1.0 - 5.5 12/02/2016 [facility] Segs-Bands # 9.4 K/CMM 1.5 - 8.1 12/02/2016 [facility] Eosinophils 0.3 % 0.0 - 4.0 12/02/2016 [facility] Monocytes 4.7 % 2.0 - 12.0 12/02/2016 [facility] Lymphocytes 13.1 % 20.0 - 40.0 12/02/2016 [facility] Segs 81.1 % 45.0 - 75.0 12/02/2016 [facility] Guided Needle Localization Uni US Guided Needle Localization Uni US - GUIDED NEEDLE LOCALIZATION UNI US/L ULTRASOUND GUIDED WIRE LOCALIZATION LEFT BREAST WITH POST DIGITAL MAMMOGRAPHIC AND ULTRASOUND IMAGING AND RADIOGRAPHIC SPECIMEN IMAGIN12/02/2016 CLINICAL: /N63 Unspecified Lump In Breast. PATIENT CONSENT: Informed consent was obtained for preoperative hookwire needle localization of the targeted lesion following a detailed discussion of the risk, alternatives, benefits and complications. A formal timeout was performed by the team prior to the procedure to verify the patient's identity and lesion site. Correlation is made to exams dated: 11/08/2016 breast MRI, 10/25/2016 stereotactic biopsy, 10/20/2016 mammogram, 10/20/2016 ultrasound, 10/13/2016 mammogram and 10/24/2015 ultrasound - [facility]. A wire localization using ultrasound guidance was performed for the marker clip located in the left breast at 12 o'clock middle depth. This was described on the previous mammography and ultrasound reports. The skin was prepped in the usual manner. Local anesthetic was administered to the access site. The localization was approached from the lateral aspect. A J-hook wire was inserted adjacent to the marker through an introducer device under ultrasound guidance. Post placement digital mammographic and ultrasound imaging demonstrates the tip passes adjacent to the marker. Prior to the sonographic guidance procedure, mammographic guidance was attempted but was terminated due to the patient having a vasovagal reaction x 2. Specimen mammogram demostrates presence of marker clip and distal segment of wire, and report were provided to Dr. Milan by Dr. Magaña. IMPRESSION: WIRE LOCALIZATION Wire localization for the marker clip in the left breast at 12 o'clock middle depth was successful with no apparent post procedure complications. Christopher Perez M.D. mt/:12/08/2016 11:48:52 Vending Machine Repairer: Brooke Anna R.D.M.S, [facility] This exam was dictated and interpreted by [id number] for [facility]. 12/02/2016 - - Read by: Christopher Perez MD Dictated Date/time: 12/08/16 11:48 Electronically Signed by: Christopher Perez MD 12/08/16 11:48 FINAL REPORT [facility] Lymphoscintigraphy TX Lymphoscintigraphy TX Patient Name: FELICIA MAHAN : 1955; Age: 61 years Female Study: Lymphoscintigraphy NM 12/01/2016 2:56 PM CDT Clinical Indication: Preoperative sentinel node injection; - C50.412 Malignant neoplasm of upper-outer quadrant of left female breast; left breast lumpectomy with sentinel node excision planned. COMPARISON: No prior comparable nuclear medicine exams have been performed. . Comparison is made with most recent mammogram and breast biopsy October 20, 2016 and October 25, 2016, respectively. TECHNIQUE: A time out was performed immediately prior to the procedure to confirm the patient's identity (name/date of ) and correct procedure site. After obtaining informed consent, the periareolar region was cleaned using sterile technique in the usual manner. 3.1 mCi of Tc 99m filtered sulfur colloid was administered in the 12 o'clock periareolar location of the left breast in a single dose. The patient tolerated the procedure well. The patient's left breast will be massaged per protocol by the senior nuclear medicine technologist prior to the patient leaving our department. 1 and 2 hour post injection lymphoscintigraphy images of the thorax in the anterior and lateral projections are obtained. Images demonstrate radiotracer uptake at the breast injection site as well as in at least 2 axillary nodes. IMPRESSION: Left breast injection for axillary sentinel node biopsy performed without incident. No immediate complications. Thank you for allowing [facility] to participate in the care of your patient. SL: [id number] 12/01/2016 - - Read by: Terence Garrison MD Dictated Date/time: 12/02/16 07:40 Electronically Signed by: Terence Garrison MD 12/02/16 07:43 FINAL REPORT [facility] Chest 2 views DX Chest 2 views DX Patient Name: FELICIA MAHAN : 1955; Age: 60 years y/o Female MR: [id number] * CHEST, 2 views HISTORY: Breast carcinoma. - Z17.0 Estrogen receptor positive status [ER+], R92.8 Other abnormal and inconclusive findings on diagnostic imaging of breast COMPARISON: None TECHNIQUE: Frontal and lateral radiographs of the chest were obtained. FINDINGS: The lungs are clear. No nodules or masses are identified. There are no pleural effusions. The heart and pulmonary vasculature are within normal limits. There are mild degenerative change involving the visualized spine. The regional skeleton is otherwise unremarkable. IMPRESSION: 1. No active disease. SL: [id number] 11/16/2016 - - Read by: Raphael Villatoro MD Dictated Date/time: 11/16/16 15:11 Electronically Signed by: Raphael Villatoro MD 11/16/16 15:13 FINAL REPORT [facility] Breast w/wo contrast bilat MRI Breast w/wo contrast bilat MRI - BREAST W/WO CONTRAST BILAT MRI BREAST MRI OF BOTH BREASTS : 11/08/2016 CLINICAL: /C50.112 Malignant Neoplasm Of Central Portion Of Left Female Breast. Comparison is made to exams dated: 10/25/2016 stereotactic biopsy, 10/20/2016 ultrasound, 10/20/2016 mammogram, 10/13/2016 mammogram, 10/24/2015 ultrasound and 10/24/2015 mammogram - [facility]. MRI images were obtained with a dedicated breast MRI. HISTORY: Left 12:00 IDC, diagnosed 10.25.2016 INFORMED CONSENT: The procedure, risks, complications, benefits, and alternatives were discussed with the patient. The patient expressed understanding and desired to proceed. RENAL EVALUATION FOR GADOLINIUM CONTRAST INJECTION: Amount of MultiHance injected: 14 cc's The patient is below the age of 60 and without risk factors for obtaining Creatinine / GFR level. TECHNIQUE: High resolution 1.4 mm RODEO plus, axial acquisitions were obtained of both breasts using an [place] 1.5 [employer] dedicated breast MRI preceding and following the administration of MultiHance, subtraction, 2D and 3D maximum intensity projections (MIP), multiplanar reconstructions (MPR) and WILBERT Time Activity curves were performed on the Physician's Review Station with etaskr. MRI FINDINGS: RIGHT BREAST FINDINGS: The breast is heterogenously dense. There is moderate background enhancement, limiting evaluation, with scattered foci and areas of enhancement likely due to background enhancement with patient having 10 year history of hormone treatent (Prempro) and discontinue one week prior to MRI. There is no abnormal enhancement, mass, or architectural distortion. There are no abnormal-appearing lymph nodes in the axilla, internal mammary chain, and within the breast. There is no abnormality in the nipple-areolar complex. There is no abnormality in the chest wall structures. There is no abnormality in the skin structures. LEFT BREAST FINDINGS: There is an enhancing 6 mm nodule likely representing the biopsy proven IDC at left 12:00, 7 cm from nipple (image 80). There are adjacent post-biopsy changes (images 54-83). There is a biopsy clip (image 74). There is no other abnormal enhancement. The breast is heterogenously dense. There is moderate background enhancement, limiting evaluation, with scattered foci and areas of enhancement likely due to background enhancement with patient having 10 year history of hormone treatent (Prempro) and discontinue one week prior to MRI. There are no abnormal-appearing lymph nodes in the axilla, internal mammary chain, and within the breast. There is no abnormality in the nipple-areolar complex. There is no abnormality in the chest wall structures. There is no abnormality in the skin structures. IMPRESSION: KNOWN BIOPSY PROVEN MALIGNANCY There is an enhancing 6 mm nodule likely representing the residual biopsy proven IDC at left 12:00, 7 cm from nipple (image 80). There are adjacent post-biopsy changes (images 64-83). There is a biopsy clip (image 74). There is no other abnormal enhancement in either breast. Treatment planning per Dr. Milan is recommended. The findings and recommendations were discussed with the patient by myself, and she voiced understanding. 11.08.2016 415pm. Christopher Perez M.D. mt/:11/10/2016 10:43:37 Vending Machine Repairer: Kamilla Allen, [facility] This exam was dictated and interpreted by [id number] for [facility]. letter sent: Georgi 6 MRI BI-RADS: 6 Known biopsy proven malignancy 11/08/2016 - - Read by: Christopher Perez MD Dictated Date/time: 11/10/16 10:43 Electronically Signed by: Christopher Perez MD 11/10/16 10:43 FINAL REPORT [facility] Stereo Breast BX Uni /Clip Primary SD MA Stereo Breast BX Uni /Clip Primary SD MA - STEREO BREAST BX UNI /CLIP PRIMARY SD MA/L STEREOTACTIC GUIDED BIOPSY LEFT BREAST WITH MARKING DEVICE INSERTED AND POST DIGITAL MAMMOGRAPHIC IMAGING- POST-PROCEDURE IMAGING FOR MARKER PLACEMENT - LEFT BREAST: 10/25/2016 CLINICAL: N63 Unspecified Lump In Breast/N63 Unspecified Lump In Breast. Correlation is made to exams dated: 10/20/2016 ultrasound, 10/20/2016 mammogram, 10/13/2016 mammogram, 10/24/2015 ultrasound, 10/24/2015 mammogram and 10/13/2015 mammogram - [facility]. A stereotactic guided biopsy was performed for the 8 mm mass located in the left breast at 12 o'clock middle depth. This was described on the previous mammography and ultrasound reports. The skin was prepped in the usual manner. Topical anesthetic was administered to the access site. A skin riddhi was made in the breast. The abnormality was approached from the craniocaudal aspect using a prone table. A 9 gauge biopsy needle was placed adjacent to the abnormality under computer guidance and confirmatory stereotactic mammography images were obtained to document needle placement. Once the needle was documented to be in the correct location, a specimen was obtained using [employer]. A BARREL clip was inserted into the biopsy cavity. A skin closure strip and a sterile dressing were applied to the access site. Post procedure digital mammographic imaging demonstrates the clip at the targeted area. The specimen was sent to the laboratory for pathological analysis. This finding is 7 cm from the nipple. IMPRESSION: STEREOTACTIC GUIDED BIOPSY MALIGNANT Stereotactic guided biopsy of the 8 mm mass in the left breast at 12 o'clock middle depth was successful with no apparent post procedure complications. Pathology indicates malignant invasive ductal carcinoma (ID). Pathology results are concordant with imaging findings. BARREL clip. Surgical consultation is recommended. The patient would like to consult with Dr. Milan, and the referral process has been initiated. Bilateral breast MRI for staging is recommended. Our radiology staff can call the patient to schedule MRI if physican's order is received. The findings and recommendations were discussed with the patient by myself, and she voiced understanding. 11.01.2016 at 243pm. Christopher Perez M.D. mt/:11/01/2016 14:45:15 Vending Machine Repairer: Jenna Reese, [facility] This exam was dictated and interpreted by [id number] for [facility]. letter sent: Surgical Consult post Biopsy 10/25/2016 - - Read by: Christopher Perez MD Dictated Date/time: 11/01/16 14:45 Electronically Signed by: Christopher Perez MD 11/01/16 14:45 FINAL REPORT [facility] Breast Complete Uni US Breast Complete Uni US - BREAST COMPLETE UNI US/L ULTRASOUND OF LEFT BREAST: 10/20/2016 CLINICAL: R92.2 Inconclusive Mammogram/R92.2. Comparison is made to exams dated: 10/13/2016 mammogram, 10/24/2015 mammogram, 10/13/2015 mammogram, 10/09/2014 mammogram, 10/02/2013 mammogram and 09/19/2012 mammogram - [facility]. Real-time ultrasound of the left breast was performed. The entire left breast was evaluated including all four quadrants subareolar region, axilla, and axillary tail. There are no abnormal-appearing lymph nodes in the left axilla. There is an 8 mm nodule in the left breast at 12 o'clock middle depth. This nodule is hypoechoic. Color flow imaging demonstrates that there is no vascularity present. This finding is approximately 7 cm from nipple as measured on mammogram. This finding is better visualized on mammogram. IMPRESSION: SUSPICIOUS OF MALIGNANCY - FOLLOW-UP RECOMMENDED The 8 mm nodule in the left breast is suspicious of malignancy. Stereotactic- guided biopsy is recommended since it is better visualized on mammogram. The findings and recommendations were discussed with the patient by myself, and she voiced understanding. Stereotactic biopsy was scheduled for 08.25.2016. Christopher Perez M.D. mt/:10/20/2016 13:17:56 Vending Machine Repairer: Karishma Maria, [facility] This exam was dictated and interpreted by [id number] for [facility]. letter sent: Biopsy Ultrasound BI-RADS: 4 Suspicious abnormality 10/20/2016 - - Read by: Christopher Perez MD Dictated Date/time: 10/20/16 13:17 Electronically Signed by: Christopher Perez MD 10/20/16 13:17 FINAL REPORT [facility] Breast Mammo Diag UNI incl CAD MA Breast Mammo Diag UNI incl CAD MA - BREAST MAMMO DIAG UNI INCL CAD MA/L UNILATERAL LEFT DIGITAL DIAGNOSTIC MAMMOGRAM: 10/20/2016 CLINICAL: R92.2 Inconclusive Mammogram/R92.2. Comparison is made to exams dated: 10/13/2016 mammogram, 10/24/2015 mammogram, 10/13/2015 mammogram, 10/09/2014 mammogram, 10/02/2013 mammogram and 09/19/2012 mammogram - [facility]. The tissue of the left breast is heterogeneously dense, which could obscure detection of small masses. There is a nodule in the left breast at 12 o'clock middle depth. This finding is persistent with additional views. No other significant masses or calcifications are seen in the breast. IMPRESSION: INCOMPLETE: NEEDS ADDITIONAL IMAGING EVALUATION The nodule in the left breast is indeterminate. PLEASE SEE SAME DAY ULTRASOUND REPORT. Christopher Perez M.D. mt/:10/20/2016 13:17:56 Vending Machine Repairer: Karishma Maria, [facility] This exam was dictated and interpreted by [id number] for [facility]. letter sent: Biopsy Mammogram BI-RADS: 0 Indeterminate 10/20/2016 - - Read by: Christopher Perez MD Dictated Date/time: 10/20/16 13:17 Electronically Signed by: Christopher Perez MD 10/20/16 13:17 FINAL REPORT [facility] Bone Density DXA [employer] MA Bone Density DXA [employer] MA - Bone Density DXA [employer] MA BONE DENSITY EVALUATION: 10/13/2016 CLINICAL DATA: Post menopausal. Taking calcium and vitamin D supplements. RISK FACTORS: race and early or surgical menopause. FINDINGS: Bone density evaluation was performed 10/13/2016 on the AP L1-L4 region of spine using a Hologic unit. The BMD average for the exam is 1.029 g/cm2. The T-score is -0.20 and the Z-score is 1.20. These values indicate 115.0% for age-matched controls. This matches the World Health Organization's criteria for normal bone density and places the patient within normal limits of fracture risk. An additional bone density evaluation was performed 10/13/2016 on the right femur neck using a Hologic unit. The BMD average for the exam is 0.942 g/cm2. The T-score is 0.80 and the Z-score is 2.10. These values indicate 133.0% for age-matched controls. This matches the World Health Organization's criteria for normal bone density and places the patient within normal limits of fracture risk. An additional bone density evaluation was performed 10/13/2016 on the right hip using a Hologic unit. The BMD average for the exam is 0.990 g/cm2. The T-score is 0.40 and the Z-score is 1.30. These values indicate 120.0% for age-matched controls. This matches the World Health Organization's criteria for normal bone density and places the patient within normal limits of fracture risk. An additional bone density evaluation was performed 10/13/2016 on the left femur neck using a Hologic unit. The BMD average for the exam is 0.841 g/cm2. The T- score is -0.10 and the Z-score is 1.20. These values indicate 119.0% for age- matched controls. This matches the World Health Organization's criteria for normal bone density and places the patient within normal limits of fracture risk. An additional bone density evaluation was performed 10/13/2016 on the left hip using a Hologic unit. The BMD average for the exam is 0.975 g/cm2. The T-score is 0.30 and the Z-score is 1.20. These values indicate 118.0% for age-matched controls. This matches the World Health Organization's criteria for normal bone density and places the patient within normal limits of fracture risk. IMPRESSION: BONE DENSITY WITHIN NORMAL LIMITS Patient is at normal risk for fracture. Compared to BMD of prior exam, there has been a DECREASE IN BONE DENSITY IN THE LEFT HIP AND NO SIGNIFICANT CHANGE IN THE SPINE OR RIGHT HIP. This exam was dictated and interpreted by [address] [place] [address] [address], [place] [id number]. Pratibha Magaña M.D. sg/:10/14/2016 11:57:51 Vending Machine Repairer: Karishma Maria, [facility] 10/13/2016 - - Read by: Pratibha Magaña MD Dictated Date/time: 10/14/16 11:57 Electronically Signed by: Pratibha Magaña MD 10/14/16 11:57 FINAL REPORT [facility] Breast Mammo Scrn PB incl CAD MA Breast Mammo Scrn PB incl CAD MA - BREAST MAMMO SCRN PB INCL CAD MA BILATERAL DIGITAL SCREENING MAMMOGRAM WITH CAD: 10/13/2016 CLINICAL: Screening/Z12.31. Current study was evaluated with a Computer Aided Detection (CAD) system. Comparison is made to exams dated: 10/24/2015 mammogram, 10/13/2015 mammogram, 10/09/2014 mammogram, 10/02/2013 mammogram and 09/19/2012 mammogram - [facility]. The tissue of both breasts is heterogeneously dense, which could obscure detection of small masses. There are benign scattered calcifications and densities in both breasts. There is an 8 mm nodule in the left breast central to the nipple middle depth. This finding is approximately 7 cm from the nipple. No other significant masses, calcifications, or other findings are seen in either breast. IMPRESSION: INCOMPLETE: NEEDS ADDITIONAL IMAGING EVALUATION The 8 mm nodule in the left breast is indeterminate. Left mammographic additional views and left breast ultrasound are recommended. Consider spot LCC, spot LMLO, and LML views. Christopher Perez M.D. mt/:10/14/2016 12:07:38 Vending Machine Repairer: Karishma Maria, [facility] This exam was dictated and interpreted by [id number] for [facility]. letter sent: Additional Imaging Mammogram BI-RADS: 0 Indeterminate 10/13/2016 - - Read by: Christopher Perez MD Dictated Date/time: 10/14/16 12:07 Electronically Signed by: Christopher Perez MD 10/14/16 12:07 FINAL REPORT [facility] Sinus paranasal series DX Sinus paranasal series DX PARANASAL SINUS RADIOGRAPH 4 VIEW CLINICAL INDICATION: J32.9 Chronic sinusitis, unspecified COMPARISON: Paranasal sinus radiograph 07/02/2013 IMPRESSION: The right frontal sinus is nonpneumatized. The bilateral maxillary sinuses are decreased in volume, associated with mild bony wall thickening, compatible with changes of chronic sinusitis. The paranasal sinuses are otherwise grossly clear. No air-fluid levels are identified to suggest acute sinusitis. No acute bony abnormalities are visualized. SL:16 05/06/2016 - - Read by: Kevin Elliott MD Dictated Date/time: 05/06/16 15:59 Electronically Signed by: Kevin Elliott MD 05/06/16 16:01 FINAL REPORT [facility] Chest 2 views DX Chest 2 views DX CHEST RADIOGRAPH 2 VIEWS INDICATION: Cough COMPARISON: Chest radiograph 08/26/2015 DISCUSSION: The cardiomediastinal silhouette and pulmonary vasculature are within normal limits. No consolidation, pleural effusion, or pneumothorax are visible. No suspicious pulmonary nodules are identified. No acute bony abnormalities are seen. IMPRESSION: No consolidation or other acute intrathoracic abnormalities are visualized. SL:16 05/06/2016 - - Read by: Kevin Elliott MD Dictated Date/time: 05/06/16 16:01 Electronically Signed by: Kevin Elliott MD 05/06/16 16:02 FINAL REPORT [facility] Foot 2 views DX Foot 2 views DX EXAM: XR LEFT FOOT 2 VIEWS DATE: 01/27/2016 at 1244 hours INDICATION: post-op left foot COMPARISON: None TECHNIQUE: AP and lateral radiographs of the left foot FINDINGS: Status post 2nd and 3rd tarsometatarsal joint fixation with satisfactory alignment. Fine detail evaluation is limited due to overlying splint. The remaining foot joint spaces are intact. No bony erosions noted. A well-corticated bony and is noted on the lateral metaphysis of the 1st metatarsal, without hallux valgus. Mild soft tissue swelling is seen overlying the surgical site. IMPRESSION: 1. Status post 2nd and 3rd tarsometatarsal joint fixation with satisfactory alignment and expected postoperative changes. 01/27/2016 - - This report was dictated by a Inside Sales Account Manager/Fellow. I have personally reviewed the images as well as the Resident's interpretation and agree with the findings. Read by: Arya Hicks MD Resident: Arya Hicks MD Dictated Date/time: 01/27/16 13:11 Electronically Signed by: Jayme Marquis MD 01/27/16 18:03 FINAL REPORT [facility] Breast Complete Pb US Breast Complete Pb US - BREAST COMPLETE PB US ULTRASOUND OF BOTH BREASTS: 10/24/2015 CLINICAL: R92.8 Other Abnormal And Inconclusive Findings On Diagnostic Imaging Of Breast. Comparison is made to exams dated: 10/24/2015 mammogram, 10/13/2015 mammogram, 10/09/2014 mammogram, 10/02/2013 mammogram and 09/19/2012 mammogram - [facility]. Real-time ultrasound of both breasts was performed. The entire right and left breasts were evaluated including all four quadrants subareolar region, axilla, and axillary tail. There are no abnormal-appearing lymph nodes in both axilla. There is no complex cyst, suspicious mass, or abnormal echotexture. There is a benign lymph node in the right axillary tail. There is a benign lymph node in the left axillary tail. There is no sonographic abnormality in the region of the two mammographic findings. In conjunction with today's additional views, mammographic findings on sceening mammogram represent fibroglandular tissue. IMPRESSION: BENIGN There is no sonographic evidence of malignancy. Screening mammogram in one year is recommended. Christopher Perez M.D. mt/:10/24/2015 14:13:24 Vending Machine Repairer: Brooke Anna R.D.M.S, [facility] This exam was dictated and interpreted by [id number] for [facility]. letter sent: Normal exam Ultrasound BI-RADS: 2 Benign 10/24/2015 - - Read by: Christopher Perez MD Dictated Date/time: 10/24/15 14:13 Electronically Signed by: Christopher Perez MD 10/24/15 14:13 FINAL REPORT [facility] Digital Mammo DX Pb MA Digital Mammo DX Pb MA - DIGITAL MAMMO DX PB MA BILATERAL DIGITAL DIAGNOSTIC MAMMOGRAM WITH CAD: 10/24/2015 CLINICAL: R92.2 Inconclusive Mammogram. Current study was evaluated with a Computer Aided Detection (CAD) system. Comparison is made to exams dated: 10/13/2015 mammogram, 10/09/2014 mammogram, 10/02/2013 mammogram and 09/19/2012 mammogram - [facility]. The tissue of both breasts is heterogeneously dense, which could obscure detection of small masses. The 8 mm focal asymmetry in the right breast anterior depth superior region seen on the mediolateral oblique view only is no longer seen with addtional views, without corresponding sonographic abnormality, likely represents fibroglandular tissue. There is a 6 mm focal asymmetry in the left breast posterior depth central to the nipple seen on the craniocaudal view only. This is less prominent with addtional views, without corresponding sonographic abnormality, present on previous studies with slightly different configuration, likely represents fibroglandular tissue. No other significant masses or calcifications are seen in either breast. IMPRESSION: BENIGN There is no mammographic evidence of malignancy. There is also no sonographic evidence of malignancy (separate report). A 1 year screening mammogram is recommended. Chrsitopher Perez M.D. mt/:10/24/2015 14:15:38 Vending Machine Repairer: Shannon Benoit, [facility] This exam was dictated and interpreted by [id number] for [facility]. letter sent: Normal exam Mammogram BI-RADS: 2 Benign 10/24/2015 - - Read by: Christopher Perez MD Dictated Date/time: 10/24/15 14:15 Electronically Signed by: Christopher Perez MD 10/24/15 14:15 FINAL REPORT [facility] Digital Mammo DX Pb MA Digital Mammo DX Pb MA - DIGITAL MAMMO DX PB MA BILATERAL DIGITAL DIAGNOSTIC MAMMOGRAM WITH CAD: 10/13/2015 CLINICAL: Z12.31 Encounter For Screening Mammogram For Malignant Neoplasm Of Breast. Current study was evaluated with a Computer Aided Detection (CAD) system. Comparison is made to exams dated: 10/09/2014 mammogram, 10/02/2013 mammogram and 09/19/2012 mammogram - [facility]. The tissue of both breasts is heterogeneously dense, which could obscure detection of small masses. There are benign scattered calcifications, including secretory calcifications, and densities in both breasts. There is an 8 mm focal asymmetry in the right breast anterior depth superior region seen on the mediolateral oblique view only. There is a 6 mm focal asymmetry in the left breast posterior depth central to the nipple seen on the craniocaudal view only. No other significant masses or calcifications are seen in either breast. IMPRESSION: INCOMPLETE: NEEDS ADDITIONAL IMAGING EVALUATION The 8 mm focal asymmetry in the right breast anterior depth superior region seen on the mediolateral oblique view only likely represents fibroglandular tissue and is indeterminate. The 6 mm focal asymmetry in the left breast posterior depth central to the nipple seen on the craniocaudal view only likely represents fibroglandular tissue and is indeterminate. Bilateral mammographic additional views and bilateral ultrasound are recommended for the finding of interest and dense breasts. Consider spot RMLO and full RML (or angled) views. Consider spot LCC and full LML (or angled) views. Christopher Perez M.D. mt/:10/17/2015 17:31:36 Vending Machine Repairer: Perla MIN(Cherelle)(M), [facility] This exam was dictated and interpreted by [id number] for [facility]. letter sent: Additional Imaging Mammogram BI-RADS: 0 Indeterminate 10/13/2015 - - Read by: Christopher Perez MD Dictated Date/time: 10/17/15 17:31 Electronically Signed by: Christopher Perez MD 10/17/15 17:31 FINAL REPORT [facility] Pelvis Transvaginal US Pelvis Transvaginal US EXAM: US PELVIS TRANSVAGINAL DATE: 10/13/2015 1:57 PM CDT INDICATION:Right-sided pelvic pain COMPARISON: 01/14/2015 TECHNIQUE: Multiplanar grayscale and color Doppler ultrasound images of the pelvis were obtained transvaginally. FINDINGS: Measurements of the uterus and right ovary: 5.9 x 3.2 x 4.0 and 1.2 x 0.7 x 1.4 cm. Volume of the right ovary: 0.6 cc. Uterus: No abnormal echotexture, mass, or complex cyst. Endometrium: 0.45 mm Cervix: Normal. Right ovary: Presence of vascular flow. No mass or complex cyst. Presence of 0.9 x 0.5 x 0.4 cm follicle. Bilateral adnexa: No mass, complex cyst, or abnormal fluid. Cul-de-sac: No abnormal fluid. IMPRESSION: No acute findings. Left ovary: Not visualized 10/13/2015 - - Read by: Christopher Perez MD Dictated Date/time: 10/14/15 11:51 Electronically Signed by: Christopher Perez MD 10/14/15 11:56 FINAL REPORT [facility] Chest 2 views DX Chest 2 views DX PA and lateral chest: The cardiomediastinal silhouette, pulmonary vasculature and riri are within normal limits. The lungs and pleural spaces are clear. There are no significant osseous abnormalities. There is no significant change compared to 04/09/2013. IMPRESSION: No acute radiographic abnormalities in the chest. [id number] 08/26/2015 - - Read by: Aristides Horner MD Dictated Date/time: 08/26/15 15:14 Electronically Signed by: Aristides Horner MD 08/26/15 15:14 FINAL REPORT [facility] Chemistry CHOLESTEROL 152 mg/dl - 199 10/10/2014 [facility] Chemistry TRIGLYCERIDE 113 mg/dl - 149 10/10/2014 [facility] Chemistry HDL 57 mg/dl >=61 10/10/2014 [facility] Chemistry LDL 72 mg/dl - 99 10/10/2014 [facility] Chemistry SODIUM 139 MEQ/L mmol/L 135 - 145 10/10/2014 [facility] Chemistry POTASSIUM 4.3 MEQ/L mmol/L 3.5 - 5.1 10/10/2014 [facility] Chemistry CREATININE 1.0 mg/dL 0.5 - 1.4 10/10/2014 [facility] Chemistry BUN 15 mg/dL 7 - 22 10/10/2014 [facility] Chemistry BUN/CREAT 15 6 - 25 10/10/2014 [facility] Chemistry ALBUMIN 4.0 g/dL 3.5 - 5.0 10/10/2014 [facility] Chemistry CALCIUM 9.4 mg/dL 8.5 - 10.5 10/10/2014 [facility] Chemistry SGPT (ALT) 28 U/L 0 - 65 10/10/2014 [facility] Chemistry SGOT (AST) 24 U/L 0 - 37 10/10/2014 [facility] Chemistry ALK PHOS 75 U/L 39 - 136 10/10/2014 [facility] Chemistry T4, FREE 1.11 ng/dl 0.76 - 1.46 10/10/2014 [facility] Chemistry TSH 1.390 uIU/mL 0.360 - 3.740 10/10/2014 [facility] Hematology HGB 13.4 g/dL 12.0 - 16.0 10/10/2014 [facility] Hematology HCT 39.0 % 36.0 - 48.0 10/10/2014 [facility] Hematology PLATELETS 236 K/CMM /mm3 133 - 450 10/10/2014 [facility] Chemistry SODIUM 140 MEQ/L mmol/L 135 - 145 03/14/2014 [facility] Chemistry POTASSIUM 3.9 MEQ/L mmol/L 3.5 - 5.1 03/14/2014 [facility] Chemistry CREATININE 0.9 mg/dL 0.5 - 1.4 03/14/2014 [facility] Chemistry SODIUM 140 MEQ/L mmol/L 135 - 145 03/14/2014 [facility] Chemistry POTASSIUM 3.9 MEQ/L mmol/L 3.5 - 5.1 03/14/2014 [facility] Chemistry CREATININE 0.9 mg/dL 0.5 - 1.4 03/14/2014 [facility] Chemistry BUN 11 mg/dL 7 - 22 03/14/2014 [facility] Chemistry BUN/CREAT 12 6 - 25 03/14/2014 [facility] Chemistry ALBUMIN 3.5 g/dL 3.5 - 5.0 03/14/2014 [facility] Chemistry CALCIUM 8.6 mg/dL 8.5 - 10.5 03/14/2014 [facility] Chemistry SGPT (ALT) 26 U/L 0 - 65 03/14/2014 [facility] Chemistry SGOT (AST) 17 U/L 0 - 37 03/14/2014 [facility] Chemistry ALK PHOS 91 U/L 39 - 136 03/14/2014 [facility] Chemistry T4, FREE 1.11 ng/dl 0.76 - 1.46 03/14/2014 [facility] Chemistry TSH 2.660 uIU/mL 0.360 - 3.740 03/14/2014 [facility] Chemistry CHOLESTEROL 166 mg/dl - 199 09/10/2013 [facility] Chemistry TRIGLYCERIDE 123 mg/dl - 149 09/10/2013 [facility] Chemistry HDL 70 mg/dl >=61 09/10/2013 [facility] Chemistry CHOLESTEROL 166 mg/dl - 199 09/10/2013 [facility] Chemistry TRIGLYCERIDE 123 mg/dl - 149 09/10/2013 [facility] Chemistry HDL 70 mg/dl >=61 09/10/2013 [facility] Chemistry LDL 71 mg/dl - 99 09/10/2013 [facility] Chemistry SODIUM 139 MEQ/L mmol/L 135 - 145 09/10/2013 [facility] Chemistry POTASSIUM 4.2 MEQ/L mmol/L 3.5 - 5.1 09/10/2013 [facility] Chemistry CREATININE 0.8 mg/dL 0.5 - 1.4 09/10/2013 [facility] Chemistry BUN 19 mg/dL 7 - 22 09/10/2013 [facility] Chemistry BUN/CREAT 24 6 - 25 09/10/2013 [facility] Chemistry ALBUMIN 3.9 g/dL 3.5 - 5.0 09/10/2013 [facility] Chemistry CALCIUM 8.9 mg/dL 8.5 - 10.5 09/10/2013 [facility] Chemistry SGPT (ALT) 18 U/L 0 - 65 09/10/2013 [facility] Chemistry SGOT (AST) 17 U/L 0 - 37 09/10/2013 [facility] Chemistry ALK PHOS 83 U/L 39 - 136 09/10/2013 [facility] Chemistry FERRITIN 29 ng/mL 5 - 204 09/10/2013 [facility] Chemistry T4, FREE 1.03 ng/dl 0.76 - 1.46 09/10/2013 [facility] Chemistry TSH 4.040 uIU/mL 0.360 - 3.740 09/10/2013 [facility] Chemistry CHOLESTEROL 210 mg/dl - 199 03/12/2013 [facility] Chemistry TRIGLYCERIDE 130 mg/dl - 149 03/12/2013 [facility] Chemistry HDL 77 mg/dl >=61 03/12/2013 [facility] Chemistry CHOLESTEROL 210 mg/dl - 199 03/12/2013 [facility] Chemistry TRIGLYCERIDE 130 mg/dl - 149 03/12/2013 [facility] Chemistry HDL 77 mg/dl >=61 03/12/2013 [facility] Chemistry LDL 107 mg/dl - 99 03/12/2013 [facility] Chemistry SODIUM 141 MEQ/L mmol/L 135 - 145 03/12/2013 [facility] Chemistry POTASSIUM 4.0 MEQ/L mmol/L 3.5 - 5.1 03/12/2013 [facility] Chemistry CREATININE 0.5 mg/dL 0.5 - 1.4 03/12/2013 [facility] Chemistry BUN 15 mg/dL 7 - 22 03/12/2013 [facility] Chemistry BUN/CREAT 30 6 - 25 03/12/2013 [facility] Chemistry ALBUMIN 3.8 g/dL 3.5 - 5.0 03/12/2013 [facility] Chemistry CALCIUM 9.1 mg/dL 8.5 - 10.5 03/12/2013 [facility] Chemistry SGPT (ALT) 26 U/L 0 - 65 03/12/2013 [facility] Chemistry SGOT (AST) 21 U/L 0 - 37 03/12/2013 [facility] Chemistry ALK PHOS 97 U/L 39 - 136 03/12/2013 [facility] Chemistry TSH 0.662 uIU/mL 0.360 - 3.740 03/12/2013 [facility] Chemistry CHOLESTEROL 175 mg/dl - 199 10/02/2012 [facility] Chemistry TRIGLYCERIDE 94 mg/dl - 149 10/02/2012 [facility] Chemistry HDL 60 mg/dl >=61 10/02/2012 [facility] Chemistry CHOLESTEROL 175 mg/dl - 199 10/02/2012 [facility] Chemistry TRIGLYCERIDE 94 mg/dl - 149 10/02/2012 [facility] Chemistry HDL 60 mg/dl >=61 10/02/2012 [facility] Chemistry LDL 96 mg/dl - 99 10/02/2012 [facility] Chemistry SODIUM 141 MEQ/L mmol/L 135 - 145 10/02/2012 [facility] Chemistry POTASSIUM 4.0 MEQ/L mmol/L 3.5 - 5.1 10/02/2012 [facility] Chemistry CREATININE 0.8 mg/dL 0.5 - 1.4 10/02/2012 [facility] Chemistry BUN 18 mg/dL 7 - 22 10/02/2012 [facility] Chemistry BUN/CREAT 22 6 - 25 10/02/2012 [facility] Chemistry ALBUMIN 3.7 g/dL 3.5 - 5.0 10/02/2012 [facility] Chemistry CALCIUM 8.4 mg/dL 8.5 - 10.5 10/02/2012 [facility] Chemistry SGPT (ALT) 19 U/L 0 - 65 10/02/2012 [facility] Chemistry SGOT (AST) 16 U/L 0 - 37 10/02/2012 [facility] Chemistry ALK PHOS 104 U/L 39 - 136 10/02/2012 [facility] Chemistry T4, FREE 1.01 ng/dl 0.76 - 1.46 10/02/2012 [facility] Chemistry TSH 2.150 uIU/mL 0.360 - 3.740 10/02/2012 [facility] Hematology HGB 12.4 g/dL 12.0 - 16.0 10/02/2012 [facility] Hematology HCT 38.1 % 36.0 - 48.0 10/02/2012 [facility] Hematology PLATELETS 204 K/CMM /mm3 133 - 450 10/02/2012 [facility] Balancing Machine Set Up Worker PAP SMEAR completed 09/02/2012 [facility] Balancing Machine Set Up Worker PAP SMEAR completed 09/02/2012 [facility] Pathology PAP SMEAR completed 09/02/2012 [facility] Pathology PAP SMEAR completed 09/02/2012 [facility] Vital Signs Vital Sign Value Date Comments Source BMI Calculated 27.85 05/23/2017 [facility] Weight 75.909 05/23/2017 [facility] Height 165.1 cm 05/23/2017 [facility] Systolic (mm Hg) 152 05/23/2017 [facility] Diastolic (mm Hg) 90 05/23/2017 [facility] Temperature Oral (F) 97.1 F 05/23/2017 [facility] Heart Rate 88 05/23/2017 [facility] Systolic (mm Hg) 142 12/03/2016 [facility] Diastolic (mm Hg) 66 12/03/2016 [facility] Respitory Rate 15 12/03/2016 [facility] Respitory Rate 17 12/03/2016 [facility] Systolic (mm Hg) 146 12/03/2016 [facility] Diastolic (mm Hg) 66 12/03/2016 [facility] Systolic (mm Hg) 145 12/03/2016 [facility] Diastolic (mm Hg) 70 12/03/2016 [facility] Respitory Rate 15 12/03/2016 [facility] Heart Rate 76 12/02/2016 [facility] Temperature Oral (F) 98 F 11/26/2016 [facility] Heart Rate 81 11/26/2016 [facility] Weight 71.818 11/26/2016 [facility] BMI Calculated 26.35 11/26/2016 [facility] Height 165.1 cm 11/26/2016 [facility] Height 65 10/10/2014 [facility] Weight 158 10/10/2014 [facility] Temperature Oral (F) 98.7 F 10/10/2014 [facility] Systolic (mm Hg) 129 10/10/2014 [facility] Diastolic (mm Hg) 83 10/10/2014 [facility] Heart Rate 74 10/10/2014 [facility] Weight 171 03/14/2014 [facility] Temperature Oral (F) 98.3 F 03/14/2014 [facility] Respitory Rate 20 03/14/2014 [facility] Heart Rate 96 03/14/2014 [facility] Systolic (mm Hg) 130 03/14/2014 [facility] Diastolic (mm Hg) 80 03/14/2014 [facility] Weight 162.4 09/10/2013 [facility] Temperature Oral (F) 96.7 F 09/10/2013 [facility] Heart Rate 85 09/10/2013 [facility] Systolic (mm Hg) 122 09/10/2013 [facility] Diastolic (mm Hg) 78 09/10/2013 [facility] Weight 160.50 06/07/2013 [facility] Temperature Oral (F) 96.3 F 06/07/2013 [facility] Systolic (mm Hg) 139 06/07/2013 [facility] Diastolic (mm Hg) 89 06/07/2013 [facility] Heart Rate 84 06/07/2013 [facility] Weight 156 03/29/2013 [facility] Systolic (mm Hg) 142 03/29/2013 [facility] Diastolic (mm Hg) 80 03/29/2013 [facility] Temperature Oral (F) 97.9 F 03/29/2013 [facility] Heart Rate 98 03/29/2013 [facility] Weight 158 03/12/2013 [facility] Temperature Oral (F) 96.0 F 03/12/2013 [facility] Systolic (mm Hg) 128 03/12/2013 [facility] Diastolic (mm Hg) 78 03/12/2013 [facility] Heart Rate 72 03/12/2013 [facility] Weight 148.25 01/09/2013 [facility] Systolic (mm Hg) 130 01/09/2013 [facility] Diastolic (mm Hg) 80 01/09/2013 [facility] Heart Rate 82 01/09/2013 [facility] Temperature Oral (F) 96.1 F 01/09/2013 [facility] Weight 151 10/02/2012 [facility] Height 65 10/02/2012 [facility] Temperature Oral (F) 97.0 F 10/02/2012 [facility] Systolic (mm Hg) 130 10/02/2012 [facility] Diastolic (mm Hg) 80 10/02/2012 [facility] Heart Rate 78 10/02/2012 [facility] Encounters Location Location Details Encounter Type Encounter Number Reason For Visit Attending Provider ADM Date DC Date Status Source [facility] Office Visit [id number] Denise Saldivar MD 09/10/2013 09/10/2013 [facility] Lab Report [id number] Denise Saldivar MD 09/10/2013 09/10/2013 [facility] Office Visit [id number] Denise Saldivar MD 03/14/2014 03/14/2014 [facility] Lab Report [id number] Denise Saldivar MD 03/14/2014 03/14/2014 [facility] Office Visit [id number] Denise Saldivar MD 10/10/2014 10/10/2014 [facility] Lab Report [id number] Denise Saldivar MD 10/10/2014 10/10/2014 [facility] Outpatient [id number] DENISE SALDIVAR 10/10/2014 Active [facility] Outpatient [id number] DENISE SALDIVAR 03/31/2015 Active [facility] Outpatient [id number] DENISE SALDIVAR 04/09/2015 Active [facility] Outpatient [id number] Jed Hicks 08/26/2015 08/27/2015 [facility] Outpatient [id number] DENISE SALDIVAR 10/13/2015 Active [facility] [id number] Leandra Lora 10/13/2015 10/14/2015 [facility] [id number] Leandra Lora 10/24/2015 10/25/2015 [facility] Outpatient Imaging [place] [facility] [id number] Shelley Kinguvkim 01/27/2016 01/28/2016 [facility] [place] Outpatient [id number] DENISE SALDIVAR 04/12/2016 Active [facility] Outpatient Imaging [place] [facility] [id number] Jed Hicks 05/06/2016 05/07/2016 [facility] [place] [facility] [id number] Shelley Hightower 06/08/2016 07/08/2016 [facility] [id number] Leandra Lora 10/13/2016 10/14/2016 [facility] [id number] DENISE SALDIVAR 10/20/2016 Active [facility] Outpatient [id number] FIRAS QUDDOS 10/20/2016 [facility] Outpatient [facility] - [facility] [id number] Leandra Lora 10/20/2016 10/21/2016 [facility] [id number] Leandra Lora 10/25/2016 10/26/2016 [facility] Outpatient [facility] - [facility] [id number] Leandra Lora 11/08/2016 11/09/2016 [facility] Outpatient [id number] James Davis 11/16/2016 11/17/2016 [facility] Outpatient [id number] FIRAS QUDDOS 11/17/2016 Active [facility] Outpatient [facility] [id number] James Davis 12/02/2016 12/03/2016 [facility] Day Surgery [id number] Jessica Checka 12/02/2016 12/03/2016 [facility] [place] Phone Message [id number] 03/29/2017 03/31/2017 [facility] Outpatient [id number] FIRAS QUDDOS 05/23/2017 [facility] Primary Care [place] Outpatient [id number] Firas Quddos 05/23/2017 05/24/2017 [facility] [place] [facility] Phone Message [id number] 06/21/2017 06/23/2017 [facility] Outpatient Imaging - [facility] [id number] Jessica Checka 08/18/2017 08/19/2017 [facility] [id number] FIRAS QUDDOS 11/21/2017 [facility] Outpatient [id number] FIRAS QUDDOS 05/25/2018 [facility] Procedures Procedure Code Date Perfomer Comments Source Colonoscopy<sup>1</sup> [id number] 02/11/2017 Ulceration in terminal ileum. Mild diverticulosis of mid ascending colon. Moderate diverticulosis of sigmoid colon. Repeat in 5 years. [facility] Colonoscopy<sup>1</sup> [id number] 02/11/2017 Ulceration in terminal ileum. Mild diverticulosis of mid ascending colon. Moderate diverticulosis of sigmoid colon. Repeat in 5 years. [facility] Vision care [id number] 09/25/2016 [facility] Vision care [id number] 09/25/2016 [facility] Vision care [id number] 09/25/2016 [facility] Dental care [id number] 08/26/2016 [facility] Dental care [id number] 08/26/2016 [facility] Dental care [id number] 08/26/2016 [facility] mammogram 51469 09/19/2012 Completed [facility] mammogram 49866 09/02/2012 completed [facility] vaginal Pap smear results 93888 09/02/2012 completed [facility] bone density 4002.65 10/02/2010 completed [facility] Cataract surgery [id number] 03/28/2008 [facility] Cataract surgery [id number] 03/28/2008 [facility] Cataract surgery [id number] 03/28/2008 [facility] colonoscopy 71178 06/16/2006 normal [facility] colonoscopy 97229 06/16/2006 completed [facility] Foot joint operations [id number] [facility] Foot joint operations [id number] [facility] Nasal septal operation [id number] [facility] Nasal septal operation [id number] [facility] Foot joint operations [id number] [facility] Nasal septal operation [id number] [id number] [facility] [id number]
--- OUTSIDE RECORDS SUMMARY | 2018-01-10 10:27 | XMS REPORT | Continuity of Care Document ---
Author Author [facility] Organization [facility] Address Unknown Phone Unavailable Care Team Providers Care Case Preparer And Liner Name Role Phone MD Janna, Denise PP Unavailable Insurance Providers Payer name Policy type / Coverage type Policy ID Covered republican ID Policy [place] Encounters Encounter Performer Location Date Lab Report Denise Saldivar MD [facility] Sep 10, 2013 Problems Problem Effective Dates Problem Status HYPERCHOLESTEROLEMIA Active HYPOTHYROIDISM Active VITAMIN D DEFICIENCY Oct 02, 2012 Active BRONCHITIS Jan 09, 2013 Inactive ALLERGIC RHINITIS Mar 12, 2013 Active OTH MX&UNS SITE INSECT BITE NONVENOMOUS W/O INF Mar 12, 2013 Inactive ASTHMA Sep 10, 2013 Active IRON DEFICIENCY ANEMIA, UNSPECIFIED Sep 10, 2013 Active Procedures Date Description Comments Sep 19, 2012 mammogram Completed Oct 02, 2012 smoking status never smoker Jun 16, 2006 colonoscopy completed Oct 02, 2010 bone density completed Sep 02, 2012 mammogram completed Sep 02, 2012 vaginal Pap smear results completed Sep 19, 2012 mammogram Completed Jun 16, 2006 colonoscopy normal Sep 10, 2013 smoking status Never smoker Medications Medication Instructions Start Date Status [...] once a day Oct 02, 2012 Active CRESTOR 20 MG TABS 1 tab by mouth at bed time Jan 09, 2013 Active LORATADINE 10 MG TABS 1 po [...] twice a day Sep 10, 2013 Active LEVOTHYROXINE SODIUM 50 MCG TABS 1 tablet daily Mar 12, 2013 Active Immunizations Vaccine Date Status dT (Diphtheria and Tetanus) booster Oct 02, 2008 completed influenza immunization (Flu Vax) has been administered Dec 11, 2012 completed Vital Signs Date Description Test Result Oct 02, 2012 weight E&M WEIGHT 151 lb Oct 02, 2012 height E&M HEIGHT 65 in Oct 02, 2012 temperature E&M TEMPERATURE 97.0 deg f Oct 02, 2012 blood pressure, systolic BP SYSTOLIC 130 mm Hg Oct 02, 2012 blood pressure, diastolic BP DIASTOLIC 80 mm Hg Oct 02, 2012 pulse rate E&M PULSE RATE 78 /min Jan 09, 2013 weight E&M WEIGHT 148.25 lb Jan 09, 2013 blood pressure, systolic BP SYSTOLIC 130 mm Hg Jan 09, 2013 blood pressure, diastolic BP DIASTOLIC 80 mm Hg Jan 09, 2013 pulse rate E&M PULSE RATE 82 /min Jan 09, 2013 temperature E&M TEMPERATURE 96.1 deg f Mar 12, 2013 weight E&M WEIGHT 158 lb Mar 12, 2013 temperature E&M TEMPERATURE 96.0 deg f Mar 12, 2013 blood pressure, systolic BP SYSTOLIC 128 mm Hg Mar 12, 2013 blood pressure, diastolic BP DIASTOLIC 78 mm Hg Mar 12, 2013 pulse rate E&M PULSE RATE 72 /min Mar 29, 2013 weight E&M WEIGHT 156 lb Mar 29, 2013 blood pressure, systolic BP SYSTOLIC 142 mm Hg Mar 29, 2013 blood pressure, diastolic BP DIASTOLIC 80 mm Hg Mar 29, 2013 temperature E&M TEMPERATURE 97.9 deg f Mar 29, 2013 pulse rate E&M PULSE RATE 98 /min Jun 07, 2013 weight E&M WEIGHT 160.50 lb Jun 07, 2013 temperature E&M TEMPERATURE 96.3 deg f Jun 07, 2013 blood pressure, systolic BP SYSTOLIC 139 mm Hg Jun 07, 2013 blood pressure, diastolic BP DIASTOLIC 89 mm Hg Jun 07, 2013 pulse rate E&M PULSE RATE 84 /min Sep 10, 2013 weight E&M WEIGHT 162.4 lb Sep 10, 2013 temperature E&M TEMPERATURE 96.7 deg f Sep 10, 2013 pulse rate E&M PULSE RATE 85 /min Sep 10, 2013 blood pressure, systolic BP SYSTOLIC 122 mm Hg Sep 10, 2013 blood pressure, diastolic BP DIASTOLIC 78 mm Hg Results Date Description Test Name Value Reference [...] 2013 urea nitrogen, blood BUN 15 mg/dL 7-22 Mar 12, 2013 urea nitrogen/creatinine ratio, serum BUN/CREAT [...] 2013 urea nitrogen, blood BUN 19 mg/dL 7-22 Sep 10, 2013 urea nitrogen/creatinine ratio, serum BUN/CREAT [...] hormone, serum TSH 4.040 uIU/mL 0.360-3.740 High Sep 02, 2012 vaginal Pap smear results PAP SMEAR completed null
--- OUTSIDE RECORDS SUMMARY | 2018-01-10 10:27 | XMS REPORT | Continuity of Care Document ---
Author Author [facility] Organization [facility] Address Unknown Phone Unavailable Care Team Providers Care Business Technology Architect Name Role Phone MD Janna, Denise PP Unavailable Insurance Providers Payer name Policy type / Coverage type Policy ID Covered republican ID Policy [place] Encounters Encounter Performer Location Date Office Visit Denise Saldivar MD [facility] Sep 10, 2013 Problems Problem Effective Dates [...] short of breath/wheezing Jan 09, 2013 Inactive LEVOTHYROXINE SODIUM 25 MCG TABS Take one tablet by mouth daily. Mar 12, 2013 Active ZITHROMAX TAB 250MG 2 tabs po now, [...] twice a day Sep 10, 2013 Active Immunizations Vaccine Date Status dT [...] hormone, serum TSH 0.662 uIU/mL 0.360-3.740 Sep 02, 2012 vaginal Pap smear results PAP SMEAR completed null
--- OUTSIDE RECORDS SUMMARY | 2018-01-10 10:28 | XMS REPORT | Summary of Care ---
Author Author [facility] Organization [facility] Address Unknown Phone Unavailable Encounter HQ Hany(FIN) [id number] Date(s): 05/23/17 - 05/23/17 [facility] [address] [place] [address]- [phone] Discharge Disposition: Home or Self Care Attending Physician: Mateo Sibley MD Vital Signs Most recent to 1 oldest [Reference Range]: Height 165.1 cm (05/23/17 8:36 AM) Temperature Oral 97.1 DegF [96.4-99.1 DegF] (05/23/17 8:36 AM) Blood Pressure 152/90 mmHg [90-140/60-90 mmHg] *HI* (05/23/17 8:36 AM) Peripheral Pulse 88 bpm Rate [60-100 bpm] (05/23/17 8:36 AM) Weight 75.909 kg (05/23/17 8:36 AM) Body Mass Index 27.85 m2 (05/23/17 8:36 AM) Problem List Condition Effective Dates Status Health Status Informant Allergic 03/12/13 Active rhinitis(Confirmed)1 Asthma(Confirmed)2 09/10/13 Active Bronchitis3, 4, 5, 6 01/09/13 Resolved Hypercholesterolemia Active (Confirmed)7 Hypothyroidism(Confi Active rmed)8 Breast Active cancer(Confirmed) Pneumonia(Confirmed) Resolved Vitamin D 10/02/12 Active deficiency9 1Data migrated from [employer] on 08/24/14. 2Data migrated from [employer] on 08/24/14. 3Data migrated from [employer] on 10/12/14. 4Data migrated from [employer] on 10/12/14. 5Data migrated from [employer] on 10/11/14. 6Data migrated from [employer] on 10/11/14. 7Data migrated from [employer] on 08/24/14. 8Data migrated from [employer] on 08/24/14. 9Data migrated from [employer] on 08/24/14. Allergies, Adverse Reactions, Alerts Substance Reaction Severity Status NKDA1 Active 1Data migrated from [employer] on 05/20/15. Originally documented as NKA. Medications Crestor 20 mg oral tablet 20 mg=1 tab, PO, Bedtime, # 90 tab, 1 Refill(s), Pharmacy: [facility] [id number] Start Date: 06/22/17 Status: Ordered levothyroxine 50 mcg (0.05 mg) oral tablet 50 microgram=1 tab, PO, Daily, # 90 tab, 1 Refill(s), [place] [facility] [place] [id number] Start Date: 06/22/17 Status: Ordered Results No data available for this section Immunizations No data available for this section Procedures Procedure Date Related Diagnosis Body Site Status Colonoscopy1 02/11/17 Completed Vision care 09/25/16 Completed Dental care 08/26/16 Completed Cataract surgery 2008 Completed Foot joint operations Completed Nasal septal operation Completed 1Ulceration in terminal ileum. Mild diverticulosis of mid ascending colon. Moderate diverticulosis of sigmoid colon. Repeat in 5 years. Social History Social History Type Response Exercise Exercise duration: 45. Exercise frequency: 5-6 times/week. Exercise type: Swimming. Employment/School Status: Retired. Alcohol Current, Type Wine. Frequency: 1-2 times per week. Smoking Status Never smoker; Exposure to Tobacco Smoke None; Cigarette Smoking Last 365 Days No; Reg Smoking Cessation Counseling No entered on: 05/23/17 Assessment and Plan No data available for this section
--- OUTSIDE RECORDS SUMMARY | 2018-01-10 10:28 | XMS REPORT | Continuity of Care Document ---
Author Author [facility] Organization [facility] Address Unknown Phone Unavailable Care Team Providers Care Jet Wiper Name Role Phone MD Janna, Denise PP Unavailable Insurance Providers Payer name Policy type / Coverage type Policy ID Covered green party ID Policy [place] Encounters Encounter Performer Location Date Lab Report Denise Saldiavr MD [facility] Mar 14, 2014 Problems Problem Effective Dates Problem Status HYPERCHOLESTEROLEMIA Active HYPOTHYROIDISM Active VITAMIN D DEFICIENCY Oct 02, 2012 Active BRONCHITIS Jan 09, 2013 Inactive ALLERGIC RHINITIS Mar 12, 2013 Active OTH MX&UNS SITE INSECT BITE NONVENOMOUS W/O INF Mar 12, 2013 Inactive ASTHMA Sep 10, 2013 Active IRON DEFICIENCY ANEMIA, UNSPECIFIED Sep 10, 2013 Active PAIN IN JOINT INVOLVING ANKLE AND FOOT Mar 14, 2014 Active URINARY URGENCY Mar 14, 2014 Active Procedures Date Description Comments Sep [...] Mar 14, 2014 smoking status Former smoker Medications Medication [...] RATE 72 /min Mar 29, 2013 weight Shyanne Ronquillo1-9 WEIGHT 156 lb Mar 29, 2013 blood pressure, systolic - 8480-6 BP SYSTOLIC 142 mm Hg Mar 29, 2013 blood pressure, diastolic - 8462-4 BP DIASTOLIC 80 mm Hg Mar 29, 2013 temperature E&M TEMPERATURE 97.9 deg f Mar 29, 2013 pulse rate E&M - 8867-4 PULSE RATE 98 /min Jun 07, 2013 weight Shyanne Ronquillo1-9 WEIGHT 160.50 lb Jun 07, 2013 temperature E&M TEMPERATURE 96.3 deg f Jun 07, 2013 blood pressure, systolic - 8480-6 BP SYSTOLIC 139 mm Hg Jun 07, 2013 blood pressure, diastolic - 8462-4 BP DIASTOLIC 89 mm Hg Jun 07, 2013 pulse rate E&M - 8867-4 PULSE RATE 84 /min Sep 10, 2013 weight Shyanne Ronquillo1-9 WEIGHT 162.4 lb Sep 10, 2013 temperature E&M TEMPERATURE 96.7 deg f Sep 10, 2013 pulse rate E&M - 8867-4 PULSE RATE 85 /min Sep 10, 2013 blood pressure, systolic - 8480-6 BP SYSTOLIC 122 mm Hg Sep 10, 2013 blood pressure, diastolic - 8462-4 BP DIASTOLIC 78 mm Hg Mar 14, 2014 weight Shyanne Carlisle9 WEIGHT 171 lb Mar 14, 2014 temperature E&M TEMPERATURE 98.3 deg f Mar 14, 2014 respiratory rate E&M - 9279-1 RESP RATE 20 /min Mar 14, 2014 pulse rate E&M - 8867-4 PULSE RATE 96 /min Mar 14, 2014 blood pressure, systolic - 8480-6 BP SYSTOLIC 130 mm Hg Mar 14, 2014 blood pressure, diastolic - 8462-4 BP DIASTOLIC 80 mm Hg Results Date Description Test Name [...]
--- OUTSIDE RECORDS SUMMARY | 2018-01-10 10:28 | XMS REPORT | Summary of Care ---
Author Author [facility] Organization [facility] Primary [facility] Address Unknown Phone Unavailable Encounter HQ Pankajr_idania(FIN) [id number] Date(s): 06/21/17 - 06/22/17 [facility] [address] [place] [phone] Vital Signs No data available for this section Problem List Condition Effective Dates Status Health [...] on 05/20/15. Originally documented as NKA. Medications No data available for this section Results No data available for this section [...]
--- OUTSIDE RECORDS SUMMARY | 2018-01-10 10:28 | XMS REPORT | Summary of Care ---
Author Author [facility] Address Unknown Phone Unavailable Encounter MYNOR Leach(FIN) [id number] Date(s): 10/13/16 - 10/13/16 [facility] Outpatient Imaging - [facility] [address] [address]- [place] [phone] Discharge Disposition: Home or Self Care Attending Physician: Leandra Lora MD Vital Signs No data available for this section Problem List Condition Effective Dates Status Health Status Informant Allergic 03/12/13 Active rhinitis(Confirmed)1 Asthma(Confirmed)2 09/10/13 Active Bronchitis3, 4, 5, 6 01/09/13 Resolved Hypercholesterolemia Active (Confirmed)7 Hypothyroidism(Confi Active rmed)8 Vitamin D 10/02/12 Active deficiency9 1Data migrated [...] Procedures Procedure Date Related Diagnosis Body Site Foot joint operations Social History Social History Type Response Smoking Status Never smoker; Exposure to Tobacco Smoke None; Cigarette Smoking Last 365 Days No; Reg Smoking Cessation Counseling No Assessment and Plan No data available for this section
--- OUTSIDE RECORDS SUMMARY | 2018-01-10 10:28 | XMS REPORT | Summary of Care ---
Author Author [facility] Organization [facility] Address Unknown Phone Unavailable Encounter HQ Keely_idania(FIN) [id number] Date(s): 11/16/16 - 11/16/16 [facility] [address] [place] [address]- [phone] Discharge Disposition: Home or Self Care Attending Physician: James Davis Vital Signs No data available for this section Problem List Condition Effective Dates Status Health Status Informant Allergic 03/12/13 Active rhinitis(Confirmed)1 Asthma(Confirmed)2 09/10/13 Active Bronchitis3, 4, 5, 6 01/09/13 Resolved Hypercholesterolemia Active (Confirmed)7 Hypothyroidism(Confi Active rmed)8 Breast Active cancer(Confirmed) Vitamin D 10/02/12 Active deficiency9 1Data migrated [...] Procedures Procedure Date Related Diagnosis Body Site Vision care 09/25/16 Dental care 08/26/16 Foot joint operations Social History Social History Type Response Exercise Exercise duration: 45. Exercise frequency: 5-6 times/week. Exercise type: Swimming. Alcohol Current, Frequency: 1-2 times per month. Smoking Status Never smoker; Exposure to Tobacco Smoke None; Cigarette Smoking Last 365 Days No; Reg Smoking Cessation Counseling No Assessment and Plan No data available for this section
--- OUTSIDE RECORDS SUMMARY | 2018-01-10 10:28 | XMS REPORT | Summary of Care ---
Author Author [facility] Organization [facility] Address Unknown Phone Unavailable Encounter HQ Hany(FIN) [phone] Date(s): 12/02/16 - 12/02/16 [facility] [address] [place] [address]- Discharge Disposition: Home or Self Care Attending Physician: Jessica Milan MD Referring Physician: Jessica Milan MD Vital Signs 1 2 3 Most recent to oldest [Reference Range]: 165.1 cm (11/26/16 3:29 PM) Height 98 DegF (11/26/16 3:38 PM) Temperature Oral [96.4-99.1 DegF] 142/66 mmHg *HI* (12/02/16 9:15 PM) 146/66 mmHg *HI* (12/02/16 9:00 PM) 145/70 mmHg *HI* (12/02/16 8:45 PM) Blood Pressure [90-140/60-90 mmHg] 15 BRMIN (12/02/16 9:15 PM) 17 BRMIN (12/02/16 9:00 PM) 15 BRMIN (12/02/16 8:45 PM) Respiratory Rate [14-20 BRMIN] 76 bpm (12/02/16 12:42 PM) 81 bpm (11/26/16 3:38 PM) Peripheral Pulse Rate [60-100 bpm] 71.818 kg (11/26/16 3:29 PM) Weight 26.35 m2 (11/26/16 3:29 PM) Body Mass Index Problem List Condition Effective Dates Status Health [...] on 05/20/15. Originally documented as NKA. Medications acetaminophen (ANES) (ANES) Route: IV, Drug form: INJ, Start date: 12/02/16 17:28:00 CDT, Stop date: 7 18:28:00 CDT Start Date: 12/02/16 Stop Date: 12/02/16 Status: Completed albuterol-ipratropium 2.5-0.5 mg inhalation solution 3 mL, Route: NEB, Drug Form: SOLN, Dosing Weight 71.818, kg, ONCE, STAT, Start d ate: 12/02/16 10:36:00 CDT, Stop date: 12/02/16 10:36:00 CDT Notes: (Same as: Kristina) Start Date: 12/02/16 Stop Date: 12/02/16 Status: Discontinued ANES acetaminophen 1,000 mg, Route: PO, Drug form: TAB, ONCE, Dosing Weight 71.818, kg, PRN Pain Sc ore 1-3, Start date: 12/02/16 19:41:00 CDT, Duration: 1 doses or times, Stop nba e: Limited # of times Start Date: 12/02/16 Stop Date: 12/02/16 Status: Discontinued ANES albuterol 0.083% inhalation solution 2.49 mg, Route: NEB, Q20Min, Dosing Weight 71.818, kg, PRN Wheezing, Priority: S TAT, Start date: 12/02/16 19:41:00 CDT, Duration: 30 day, Stop date: 01/01/17 19 :40:00 CDT Start Date: 12/02/16 Stop Date: 12/02/16 Status: Discontinued ANES dexamethasone 4 mg, Route: IVP, ONCE, Dosing Weight 71.818, kg, PRN Nausea & Vomiting, Start date: 12/02/16 19:41:00 CDT Start Date: 12/02/16 Stop Date: 12/02/16 Status: Discontinued ANES diphenhydrAMINE 12.5 mg, Route: IVP, Drug form: INJ, Q6H, Dosing Weight 71.818, kg, PRN Itching, Start date: 12/02/16 19:41:00 CDT, Duration: 30 day, Stop date: 01/01/17 19:40: 00 CDT Start Date: 12/02/16 Stop Date: 12/02/16 Status: Discontinued ANES esmolol 10 mg, Route: IVP, Q5Min, Dosing Weight 71.818, kg, PRN Other -See Comment, Star t date: 12/02/16 19:41:00 CDT, Duration: 5 doses or times, Stop date: Limited # of times Start Date: 12/02/16 Stop Date: 12/02/16 Status: Discontinued ANES fentaNYL 25 microgram, Route: IVP, Q5Min, Dosing Weight 71.818, kg, PRN Pain Score 4-6, P riority: Routine, Start date: 12/02/16 19:41:00 CDT, Duration: 4 doses or times, Stop date: Limited # of times Start Date: 12/02/16 Stop Date: 12/02/16 Status: Discontinued ANES fentaNYL 50 microgram, Route: IVP, Q5Min, Dosing Weight 71.818, kg, PRN Pain Score 7-10, Priority: Routine, Start date: 12/02/16 19:41:00 CDT, Duration: 2 doses or times , Stop date: Limited # of times Start Date: 12/02/16 Stop Date: 12/02/16 Status: Discontinued ANES flumazenil 0.2 mg, Route: IVP, PRN, Dosing Weight 71.818, kg, PRN Benzodiazepine Reversal, Initial dose, Start date: 12/02/16 19:41:00 CDT, Duration: 30 day, Stop date: 19:40:00 CDT Start Date: 12/02/16 Stop Date: 12/02/16 Status: Discontinued ANES hydrALAZINE 10 mg, Route: IVP, Q20Min, Dosing Weight 71.818, kg, PRN Elevated BP, Start date : 12/02/16 19:41:00 CDT, Duration: 2 doses or times, Stop date: Limited # of violeta es Start Date: 12/02/16 Stop Date: 12/02/16 Status: Discontinued ANES HYDROmorphone 0.5 mg, Route: IVP, Q5Min, Dosing Weight 71.818, kg, PRN Pain Score 7-10, Start date: 12/02/16 19:41:00 CDT, Duration: 4 doses or times, Stop date: Limited # of times Start Date: 12/02/16 Stop Date: 12/02/16 Status: Discontinued ANES labetalol 10 mg, Route: IVP, Q5Min, Dosing Weight 71.818, kg, PRN Elevated BP, Start date: 12/02/16 19:41:00 CDT, Duration: 5 doses or times, Stop date: Limited # of times Start Date: 12/02/16 Stop Date: 12/02/16 Status: Discontinued ANES meperidine 12.5 mg, Route: IVP, Q30Min, Dosing Weight 71.818, kg, PRN Other -See Comment, F or shivering, Start date: 12/02/16 19:41:00 CDT, Duration: 2 doses or times, Sto p date: Limited # of times Start Date: 12/02/16 Stop Date: 12/02/16 Status: Discontinued ANES morphine Sulfate 2 mg, Route: IVP, Q5Min, Dosing Weight 71.818, kg, PRN Pain Score 4-6, Start nba e: 12/02/16 19:41:00 CDT, Duration: 5 doses or times, Stop date: Limited # of ti mes Start Date: 12/02/16 Stop Date: 12/02/16 Status: Discontinued ANES morphine Sulfate 4 mg, Route: IVP, Q5Min, Dosing Weight 71.818, kg, PRN Pain Score 7-10, Start da te: 12/02/16 19:41:00 CDT, Duration: 3 doses or times, Stop date: Limited # of t imes Start Date: 12/02/16 Stop Date: 12/02/16 Status: Discontinued ANES naloxone 0.4 mg, Route: IVP, Q2MIN, Dosing Weight 71.818, kg, PRN Narcotic Reversal, Star t date: 12/02/16 19:41:00 CDT, Duration: 8 doses or times, Stop date: Limited # of times Start Date: 12/02/16 Stop Date: 12/02/16 Status: Discontinued ANES ondansetron 4 mg, Route: IVP, ONCE, Dosing Weight 71.818, kg, PRN Nausea & Vomiting, Start date: 12/02/16 19:41:00 CDT Start Date: 12/02/16 Stop Date: 12/02/16 Status: Discontinued ANES oxyCODONE 5 mg, Route: PO, Drug form: TAB, Q4H, Dosing Weight 71.818, kg, PRN Pain Score 4 -6, Start date: 12/02/16 19:41:00 CDT, Duration: 30 day, Stop date: 01/01/17 19: 40:00 CDT Start Date: 12/02/16 Stop Date: 12/02/16 Status: Discontinued ANES oxyCODONE 10 mg, Route: PO, Drug form: TAB, Q4H, Dosing Weight 71.818, kg, PRN Pain Score 7-10, Start date: 12/02/16 19:41:00 CDT, Duration: 30 day, Stop date: 01/01/17 1 9:40:00 CDT Start Date: 12/02/16 Stop Date: 12/02/16 Status: Discontinued ceFAZolin (ANES) (ANES) Route: IV, Drug form: INJ, Start date: 12/02/16 16:58:00 CDT, Stop date: 7 17:58:00 CDT Start Date: 12/02/16 Stop Date: 12/02/16 Status: Completed dexamethasone (ANES) Route: IV, Drug form: INJ, ONCE, Stop date: 12/02/16 17:43:00 CDT Start Date: 12/02/16 Stop Date: 12/02/16 Status: Completed fentaNYL (ANES) Route: IV, Drug form: INJ, ONCE, Stop date: 12/02/16 17:38:00 CDT Start Date: 12/02/16 Stop Date: 12/02/16 Status: Completed hydromorphone (ANES) Route: IV, Drug form: INJ, ONCE, Stop date: 12/02/16 18:58:00 CDT Start Date: 12/02/16 Stop Date: 12/02/16 Status: Completed Lactated Ringers 1,000 mL 1,000 mL, Rate: 25 ml/hr, Infuse over: 40 hr, Route: IV, Dosing Weight 71.818 kg , Total Volume: 1,000, Start date: 12/02/16 10:36:00 CDT, Duration: 1 day, Stop date: 12/03/16 10:35:00 CDT Start Date: 12/02/16 Stop Date: 12/02/16 Status: Discontinued Lactated Ringers Injection IV 1000 mL 1,000 mL, Rate: 125 ml/hr, Infuse over: 8 hr, Route: IV, Dosing Weight 71.818 kg , Total Volume: 1,000, Start date: 12/02/16 19:41:00 CDT, Duration: 30 day, Stop date: 01/01/17 19:40:00 CDT Start Date: 12/02/16 Stop Date: 12/02/16 Status: Discontinued lidocaine (ANES) Route: IV, Drug form: INJ, ONCE, Stop date: 12/02/16 17:43:00 CDT Start Date: 12/02/16 Stop Date: 12/02/16 Status: Completed LR 1000 mL INJ (ANES) Route: IV, Total Volume: 1,000, Start date: 12/02/16 16:45:00 CDT, Stop date: 17:45:00 CDT Start Date: 12/02/16 Stop Date: 12/02/16 Status: Completed methylene blue 10 mg, 2 mL, Route: TOP, Drug form: SOLN, ONCE, Dosing Weight 71.818, kg, Start date: 12/02/16 12:46:00 CDT, Stop date: 12/02/16 12:46:00 CDT Notes: (Same as :ProvayBlue) MEDICATION WASTE Product Size: 50 mgProduc t Wasted: ___ mg Start Date: 12/02/16 Stop Date: 12/02/16 Status: Ordered midazolam (ANES) Route: IV, Drug form: SOLN, ONCE, Stop date: 12/02/16 17:38:00 CDT Start Date: 12/02/16 Stop Date: 12/02/16 Status: Completed ondansetron (ANES) Route: IV, Drug form: INJ, ONCE, Stop date: 12/02/16 17:38:00 CDT Start Date: 12/02/16 Stop Date: 12/02/16 Status: Completed propofol (ANES) Route: IV, Drug form: INJ, ONCE, Stop date: 12/02/16 17:43:00 CDT Start Date: 12/02/16 Stop Date: 12/02/16 Status: Completed rocuronium (ANES) Route: IV, Drug form: INJ, ONCE, Stop date: 12/02/16 17:43:00 CDT Start Date: 12/02/16 Stop Date: 12/02/16 Status: Completed sodium chloride 0.9% 500 ml INJ 500 mL 500 mL, Rate: 25 ml/hr, Infuse over: 20 hr, Route: IV, Dosing Weight 71.818 kg, Total Volume: 500, Start date: 12/02/16 10:36:00 CDT, Duration: 1 day, Stop date : 12/03/16 10:35:00 CDT Start Date: 12/02/16 Stop Date: 12/02/16 Status: Discontinued Results ELECTROLYTES Most recent to 1 oldest [Reference Range]: Sodium Lvl [135-145 142 mEq/L mEq/L] (12/02/16 11:20 AM) Potassium Lvl 3.7 mEq/L [3.5-5.1 mEq/L] (12/02/16 11:20 AM) Chloride Lvl [95-109 106 mEq/L mEq/L] (12/02/16 11:20 AM) CO2 [24-32 mEq/L] 28 mEq/L (12/02/16 11:20 AM) AGAP [10.0-20.0 11.7 mEq/L mEq/L] (12/02/16 11:20 AM) CHEM PANEL Most recent to 1 oldest [Reference Range]: Creatinine Lvl 0.73 mg/dL [0.50-1.40 mg/dL] (12/02/16 11:20 AM) eGFR 90 mL/min/1.73m2 1 *NA* (12/02/16 AM) BUN [7-22 mg/dL] 12 mg/dL (12/02/1620 AM) B/C Ratio [6-25] 16 (12/02/1620 AM) Glucose Lvl [70-99 90 mg/dL mg/dL] (12/02/16 AM) Total Protein 7.7 g/dL [6.4-8.4 g/dL] (12/02/16 AM) Albumin Lvl [3.5-5.0 3.8 g/dL g/dL] (12/02/16 AM) Globulin [2.7-4.2 3.9 g/dL g/dL] (12/02/16 11:20 AM) A/G Ratio [0.7-1.6] 1.0 (12/02/16: AM) Calcium Lvl 9.1 mg/dL [8.5-10.5 mg/dL] (12/02/16 11:20 AM) ALT [0-65 unit/L] 40 unit/L (12/02/16:20 AM) AST [0-37 unit/L] 30 unit/L (12/02/16:20 AM) Alk Phos [39-136 95 unit/L unit/L] (12/02/16 11:20 AM) Bili Total [0.2-1.3 0.4 mg/dL mg/dL] (12/02/16 11:20 AM) 1Result Comment: The eGFR is calculated using the [...] from the National Kidney Disease Education Program ( NKDEP) which additionally recommends that when the eGFR is used in patients with extremes of body mass index for purposes of drug dosing, the eGFR should be mul tiplied by the estimated BMI. HEMATOLOGY Most recent to 1 oldest [Reference Range]: WBC [3.7-10.4 K/CMM] 11.6 K/CMM *HI* (12/02/16:20 AM) RBC [4.20-5.40 4.81 M/CMM M/CMM] (12/02/16: AM) Hgb [12.0-16.0 g/dL] 13.4 g/dL (12/02/16 AM) Hct [36.0-48.0 %] 40.1 % (12/02/16 AM) MCV [80.0-98.0 fL] 83.4 fL (12/02/16: AM) MCH [27.0-31.0 pg] 27.9 pg (12/02/16:20 AM) MCHC [32.0-36.0 33.4 g/dL g/dL] (12/02/16 AM) RDW [11.5-14.5 %] 14.0 % (12/02/16: AM) Platelet [133-450 256 K/CMM K/CMM] (12/02/1620 AM) MPV [7.4-10.4 fL] 7.7 fL (12/02/16:20 AM) Segs [45.0-75.0 %] 81.1 % *HI* (12/02/16 AM) Lymphocytes 13.1 % [20.0-40.0 %] *LOW* (12/02/16 AM) Monocytes [2.0-12.0 4.7 % %] (12/02/16 11:20 AM) Eosinophils [0.0-4.0 0.3 % %] (12/02/16 11: AM) Basophils [0.0-1.0 0.8 % %] (12/02/16 11:20 AM) Segs-Bands # 9.4 K/CMM [1.5-8.1 K/CMM] *HI* (12/02/16 11:20 AM) Lymphocytes # 1.5 K/CMM [1.0-5.5 K/CMM] (12/02/16 11:20 AM) Monocytes # [0.0-0.8 0.5 K/CMM K/CMM] (12/02/16 11:20 AM) Basophils # [0.0-0.2 0.1 K/CMM K/CMM] (12/02/16 11:20 AM) PT [12.0-14.7 12.6 seconds seconds] (12/02/16 11:20 AM) INR [0.85-1.17] 0.92 (12/02/16 11:20 AM) PTT [22.9-35.8 30.6 seconds seconds] (12/02/16 11:20 AM) Immunizations No data available for this section Procedures Procedure Date Related Diagnosis Body Site Vision care 09/25/16 Dental care 08/26/16 Cataract surgery 2009 Foot joint operations Nasal septal operation Social History Social History Type Response Exercise Exercise duration: 45. Exercise frequency: 5-6 times/week. Exercise type: Swimming. Employment/School Status: Retired. Alcohol Current, Type Wine. Frequency: 1-2 times per week. Smoking Status Former smoker; Exposure to Tobacco Smoke None; Cigarette Smoking Last 365 Days No; Reg Smoking Cessation Counseling No Assessment and Plan No data available for this section
--- OUTSIDE RECORDS SUMMARY | 2018-01-10 10:28 | XMS REPORT | Summary of Care ---
Author Author [facility] Organization [facility] Address Unknown Phone Unavailable Encounter HQ Hany(FIN) [id number] Date(s): 05/23/17 - 05/23/17 [facility] [address] [place] [address]- [phone] Discharge Disposition: Home or Self Care Attending [...] Bedtime, # 90 tab, 1 Refill(s), Pharmacy: [facility] [id number] Start Date: 06/22/17 Status: Ordered levothyroxine 50 mcg (0.05 mg) oral tablet 50 microgram=1 tab, PO, Daily, # 90 tab, 1 Refill(s), [place]: [place] [id number] Start Date: 06/22/17 Status: Ordered Results No [...]
--- OUTSIDE RECORDS SUMMARY | 2018-01-10 10:28 | XMS REPORT | Summary of Care ---
Author Author [facility] Address Unknown Phone Unavailable Encounter HQ Hany(FIN) [id number] Date(s): 11/08/16 - 11/08/16 [facility] Outpatient Imaging - [facility] [address] [address]- [place] [phone] Discharge Disposition: Home or Self Care Attending [...]
--- OUTSIDE RECORDS SUMMARY | 2018-01-10 10:28 | XMS REPORT | Continuity of Care Document ---
Author Author [facility] Organization [facility] Address Unknown Phone Unavailable Care Team Providers Care Legal Researcher Name Role Phone MD Janna, Denise PP Unavailable Insurance Providers Payer name Policy type / Coverage type Policy ID Covered green party ID [place] Encounters Encounter Performer Location Date Lab Report Denise Saldivar MD [facility] Oct 10, 2014 Problems Problem Effective [...] count PLATELETS 204 K/CMM /mm3 133-450 Oct 10, 2014 hemoglobin, blood HGB 13.4 g/dL 12.0-16.0 Oct 10, 2014 hematocrit, blood HCT 39.0 % 36.0-48.0 Oct 10, 2014 platelet count PLATELETS 236 K/CMM /mm3 133-450 Oct 02, 2012 cholesterol, [...] stimulating hormone, serum TSH 2.660 uIU/mL 0.360-3.740 Oct 10, 2014 cholesterol, serum CHOLESTEROL 152 mg/dl <=199 Oct 10, 2014 triglyceride, serum, fasting TRIGLYCERIDE 113 mg/dl <=149 Oct 10, 2014 HDL cholesterol, serum HDL 57 mg/dl >=61 Low Oct 10, 2014 LDL cholesterol, serum LDL 72 mg/dl <=99 Oct 10, 2014 sodium, serum SODIUM 139 MEQ/L mmol/L 135-145 Oct 10, 2014 potassium, serum POTASSIUM 4.3 MEQ/L mmol/L 3.5-5.1 Oct 10, 2014 creatinine, serum CREATININE 1.0 mg/dL 0.5-1.4 Oct 10, 2014 urea nitrogen, blood BUN 15 mg/dL 7-22 Oct 10, 2014 urea nitrogen/creatinine ratio, serum BUN/CREAT 15 null 6-25 Oct 10, 2014 albumin, serum ALBUMIN 4.0 g/dL 3.5-5.0 Oct 10, 2014 calcium, serum CALCIUM 9.4 mg/dL 8.5-10.5 Oct 10, 2014 alanine aminotransferase (SGPT), serum SGPT (ALT) 28 U/L 0-65 Oct 10, 2014 aspartate aminotransferase (SGOT), serum SGOT (AST) 24 U/L 0-37 Oct 10, 2014 alkaline phosphatase, serum ALK PHOS 75 U/L 39-136 Oct 10, 2014 thyroxine, serum, free T4, FREE 1.11 ng/dl 0.76-1.46 Oct 10, 2014 thyroid stimulating hormone, serum TSH 1.390 uIU/mL 0.360-3.740 Sep 02, 2012 vaginal Pap smear results PAP SMEAR completed null
--- OUTSIDE RECORDS SUMMARY | 2018-01-10 10:28 | XMS REPORT | Summary of Care ---
Author Author [facility] Organization [facility] Address Unknown Phone Unavailable Encounter HQ Hany(FIN) [id number] Date(s): 03/29/17 - 03/30/17 [facility] [address] [place] [address] [phone] Vital Signs No data available for this [...] Bedtime, # 90 tab, 0 Refill(s), Pharmacy: [id number] Start Date: 03/29/17 Stop Date: 06/27/17 Status: Ordered Results No data available for [...]
--- OUTSIDE RECORDS SUMMARY | 2018-01-10 10:28 | XMS REPORT | Summary of Care ---
Author Author [facility] Organization [facility] Address Unknown Phone Unavailable Encounter HQ Juan Davidntr_alievens(FIN) [id number] Date(s): 08/26/15 - 08/26/15 [facility] [address] [place] [address]- [phone] Discharge Disposition: Home Attending Physician: Jed Hicks MD Vital Signs No data available for this section Problem List Condition Effective Dates Status Health Status Informant Allergic rhinitis1 03/12/13 Active Asthma2 09/10/13 Active Bronchitis3, 4, 5, 6 01/09/13 Resolved Hypercholesterolemia Active 7 Hypothyroidism8 Active Vitamin D 10/02/12 Active deficiency9 1Data migrated [...] No data available for this section Procedures No data available for this section Social History Social History Type Response Smoking Status Never smoker; Exposure to Tobacco Smoke None; Cigarette Smoking Last 365 Days No; Reg Smoking Cessation Counseling No Assessment and Plan No data available for this section
--- OUTSIDE RECORDS SUMMARY | 2018-01-10 10:28 | XMS REPORT | Summary of Care ---
Author Author [facility] Outpatient Imaging - [employer] Outpatient Imaging - [facility] Address Unknown Phone Unavailable Encounter MYNOR Leach(FIN) [id number] Date(s): 10/20/16 - 10/20/16 [facility] Outpatient Imaging - [facility] [address] [address]- [place] [phone] Discharge Disposition: Home or Self Care Attending [...]
--- OUTSIDE RECORDS SUMMARY | 2018-01-10 10:28 | XMS REPORT | Continuity of Care Document ---
Author Author [facility] Organization [facility] Address Unknown Phone Unavailable Care Team Providers Care Campaign Assistant Name Role Phone MD Janna, Denise PP Unavailable Insurance Providers Payer name Policy type / Coverage type Policy ID Covered alliance party ID Policy [place] Encounters Encounter Performer Location Date Office Visit Denise Saldivar MD [facility] Mar 14, 2014 Problems Problem Effective Dates [...]
--- OUTSIDE RECORDS SUMMARY | 2018-01-10 10:28 | XMS REPORT | Summary of Care ---
Author Author [facility] Outpatient Imaging - [facility] Address Unknown Phone Unavailable Encounter HQ Hany(FIN) [id number] Date(s): 12/02/16 - 12/02/16 [facility] Outpatient Imaging - [facility] [id number] [place] [address] [phone] Discharge Disposition: Home or Self Care Attending [...]
--- OUTSIDE RECORDS SUMMARY | 2018-01-10 10:28 | XMS REPORT | Summary of Care ---
Author Author [facility] Outpatient Imaging - [facility] Outpatient Imaging [facility] Address Unknown Phone Unavailable Encounter HQ Hany(FIN) [id number] Date(s): 08/18/17 - 08/18/17 [facility] Outpatient Imaging [facility] [address] [facility] [address] [place] [phone] Discharge Disposition: Home or Self Care Attending Physician: Jessica Milan MD Vital Signs No data available for [...]
--- OUTSIDE RECORDS SUMMARY | 2018-01-10 10:28 | XMS REPORT | Summary of Care ---
Author Author [facility] Address Unknown Phone Unavailable Encounter MYNOR Leach(FIN) [id number] Date(s): 10/25/16 - 10/25/16 [facility] Outpatient Imaging - [facility] [address] [address]- [place] [phone] Discharge Disposition: Home or Self Care Attending [...]
--- OUTSIDE RECORDS SUMMARY | 2018-01-10 10:29 | XMS REPORT | Summary of Care ---
Author Author [facility] Outpatient [facility] [place] Organization [facility] Outpatient Imaging [place] Address Unknown Phone Unavailable Encounter HQ Encntr_alievens(FIN) [id number] Date(s): 01/27/16 - 01/27/16 [facility] Outpatient Imaging [facility] [address] [place] [address] [phone] Discharge Disposition: Home or Self Care Attending Physician: Shelley Hightower MD Vital Signs No data available for [...]
--- OUTSIDE RECORDS SUMMARY | 2018-01-10 10:29 | XMS REPORT ---
Author [facility] Address Unknown Phone Unavailable Care Team Providers Care Cns Name Role Phone EDMOND THORNE Unavailable Unavailable Problems This patient has no known problems. Allergies, Adverse Reactions, Alerts This patient has no known allergies or adverse reactions. Medications This patient has no known medications. Results Test Description Test Time Test Comments Text Results Atomic Results Result Comments CHEST 2 VIEWS 2017-12-12 15:11:00 [place] [address] Patient Name: FELICIA MAHAN MR #: [id number] : 1955 Age/Sex: 62/F Req #: [id number] [facility] Physician: Ordered by: EDMOND THORNE MD Report #: [id number] Location: OR Room/Bed: Procedure: [id number] DX/CHEST 2 VIEWS Exam Date: 12/12/17 Exam Time: 1440 REPORT STATUS: Signed EXAMINATION: PA and lateral views of the chest. COMPARISON: None CLINICAL HISTORY: Preadmission for breast surgery DISCUSSION: Lines/tubes: None. Lungs: The lungs are well inflated and clear. No pneumonia or pulmonary edema. Pleura: There is no pleural effusion or pneumothorax. Heart and mediastinum: The cardiomediastinal silhouette is normal. Bones and soft tissues: No acute bony abnormalities. Scattered surgical clips left hemithorax. IMPRESSION: No acute cardiopulmonary abnormalities. Signed by: Dr. Teresita Baptiste M.D. on 12/12/2017 3:11 PM Dictated By: TERESITA BAPTISTE MD [id number] Transcribed By: JOSE ENRIQUE on 12/12/171 COPY TO: EDMOND THORNE MD
--- OUTSIDE RECORDS SUMMARY | 2018-01-10 10:29 | XMS REPORT | Summary of Care ---
Author Author [facility] Organization [facility] Address Unknown Phone Unavailable Encounter HQ Encntr_alievens(FIN) [id number] Date(s): 06/08/16 - 07/07/16 [facility] Discharge Disposition: Home or Self Care Attending [...]
--- OUTSIDE RECORDS SUMMARY | 2018-01-10 10:29 | XMS REPORT | Summary of Care ---
Author Author [facility] Outpatient Imaging - [facility] Address Unknown Phone Unavailable Encounter HQ Hany(FIN) [id number] Date(s): 10/24/15 - 10/24/15 [facility] [address] [address] [place] [phone] Discharge Disposition: Home or Self Care Attending [...]
--- OUTSIDE RECORDS SUMMARY | 2018-01-10 10:29 | XMS REPORT | Summary of Care ---
Author Author [facility] Outpatient Imaging [facility] Outpatient [facility] Address Unknown Phone Unavailable Encounter HQ Keely_idania(FIN) [id number] Date(s): 05/06/16 - 05/06/16 [facility] Outpatient Imaging [address] [address]- [phone] Discharge Disposition: Home or Self Care Attending Physician: Jed Hicks MD Vital Signs [...]
--- OUTSIDE RECORDS SUMMARY | 2018-01-10 10:29 | XMS REPORT | Summary of Care ---
Author Author [facility] - [facility] Address Unknown Phone Unavailable Encounter HQ Hany(FIN) [id number] Date(s): 10/13/15 - 10/13/15 [facility] [address] [address] [place] [phone] Discharge Disposition: Home or Self Care Attending [...]
--- NOTE | 2018-01-18 23:27 | Operative Report ---
DATE OF PROCEDURE: December 29, 2017 PREOPERATIVE DIAGNOSES 1. History of left breast cancer. 2. Breast tissue asymmetry. 3. Right breast hypermastia. 4. Excess lower abdominal skin and diastasis recti. 5. Lipodystrophy of bilateral flanks. POSTOPERATIVE DIAGNOSES 1. History of left breast cancer. 2. Breast tissue asymmetry. 3. Right breast hypermastia. 4. Excess lower abdominal skin and diastasis recti. 5. Lipodystrophy of bilateral flanks. PROCEDURES PERFORMED 1. Right breast reduction mammoplasty 160 g of breast tissue removed from the right breast. 2. Suction-assisted lipectomy of bilateral flanks. Total tumescent fluid injected was 1200 mL. Total aspirate out 1300 mL. 3. Abdominoplasty. ANESTHESIA: General endotracheal. INDICATION FOR SURGERY: This is a 62-year-old female, who has history of left breast cancer and is status post left breast lumpectomy and radiation. Patient complains of breast symmetry and right breast hypermastia. She also complains of excess lower abdominal skin and diastasis recti, as well as lipodystrophy of bilateral flanks. Patient desires right breast reduction mammoplasty. She also desires suction-assisted lipectomy of bilateral flanks and abdominoplasty. Risks, alternatives, and possible complications of the above procedures were explained to the patient. These include, but are not limited to bleeding, infection, scarring, nipple or skin flap necrosis, umbilical or skin flap necrosis, seroma formation, pulmonary embolism, deep venous thrombosis, skin irregularity, lack of result, recurrence of lipodystrophy, breast asymmetry, wound dehiscence, unsatisfactory aesthetic result, and possible need for further surgery, as well as loss of nipple sensation. The patient had an opportunity to ask questions and have her questions answered and agreed to proceed with the proposed procedure. PROCEDURE IN DETAIL: The patient was marked in the preoperative holding area. She was then taken to the operating room and placed supine on the operating table. After adequate general anesthesia, the Hui was placed and the patient's bilateral breasts, abdomen, and bilateral flanks were prepped and draped in the usual surgical fashion. Attention was then turned first to the patient's right breast. The preoperative markings were rechecked. The nipple-areolar complex was marked with [place] cutter at 42 mm of diameter. The excess skin was then de-epithelialized with the help of #15 blade and with the Bovie. A superior pedicle was developed from the de-epithelialized skin and tissue was removed from the upper right breast from the inferior medial and lateral portion of the breasts. The nipple-areolar complex was then sutured in its new superior location with interrupted 4-0 Vicryl sutures. The medial and lateral skin flaps were advanced to each other and sutured to each other with interrupted 3-0 Vicryl sutures. Excess skin was removed along the inframammary fold. The inframammary incision was closed with interrupted 3-0 Vicryl sutures and a running subcuticular 3-0 PDS suture. A running subcuticular 4-0 PDS suture was placed along the vertical limb and around the nipple-areolar complex. Before wound closure, the patient was placed in the sitting position and the 2 breasts were checked for symmetry. They appeared to be symmetric. A total of 160 g of breast tissue was removed from the right breast and it was sent to pathology for permanent. After completion of the right breast reduction, attention was turned to the patient's bilateral flank area. Two small incisions in the lower abdominal skin to be resected. Tumescent fluid was injected in each flank area approximately 600 mL of tumescent. After adequate time was given for the tumescent to act, suction-assisted lipectomy was undertaken with #3 mm cannula. Approximately 650 mL of aspirate were removed from each flank area. After completion of the suction-assisted lipectomy, an incision was made in the suprapubic area previously marked with #10 blade. Tissue was dissected down to the abdominal wall fascia with the help of the Bovie. The lower abdominal skin flap was elevated with the Bovie. Once the umbilicus was reached, an incision was made around the umbilicus with #15 blade. The umbilical stalk was carefully dissected ensuring that its blood supply remains intact. The abdominal skin flap was then elevated up to the area of the xiphoid. The abdominal wall fascia was plicated with a looped 0-nylon suture from the xiphoid to the umbilicus and a 2nd suture from the umbilicus to the pubic area. The abdominal wall fascia was then injected with 30 mL of 0.5% Marcaine with epinephrine. The patient was then placed in a flexed position and the lower abdominal skin flap was advanced. The area of the new umbilicus was marked and an inverted-U incision was made with the help of #15 blade and with the Bovie. The umbilicus was sutured in its new superior location with interrupted 4-0 Vicryl sutures and a running subcuticular 4-0 PDS suture. The excess lower abdominal skin was resected with the help of #10 blade and with the Bovie. Two #10 flat JPs were placed, 1 on each side of the abdomen, exiting in the pubic area and sutured in place with 2-0 nylon suture. The lower abdominal incision was then closed with interrupted 2-0 Vicryl sutures in Charlene's fascia, INSORB stapler in subcutaneous tissue, and a running subcuticular 3-0 PDS suture. At the end of the case, both breasts appeared to be symmetric. The right nipple and the umbilicus and all skin flaps appeared viable. Steri-Strips were placed around the right nipple-areolar complex. All incisions were covered with Xeroform, ABD pads, and a surgical bra, and a compression garment were placed on the patient. The Hui was removed before the end of the case. The patient was transferred extubated to the recovery room. There were no immediate complications. The needle and instrument count was correct at the end of the case and she was transferred, extubated to the recovery room. Job#: [id number]
== END | disposition home or self-care (01) ==
LOC: OR 06:22
PROVIDERS: ATTEND Plastic Surgery
DX: N62 Hypertrophy of breast (principal); N65.1 Disproportion of reconstructed breast; Z85.3 Personal history of malignant neoplasm of breast; E88.1 Lipodystrophy, not elsewhere classified; L98.7 Excessive and redundant skin and subcutaneous tissue; M62.08 Separation of muscle (nontraumatic), other site; J45.909 Unspecified asthma, uncomplicated; F41.9 Anxiety disorder, unspecified; I10 Essential (primary) hypertension; E03.9 Hypothyroidism, unspecified; Z01.810 Encounter for preprocedural cardiovascular examination; Z01.812 Encounter for preprocedural laboratory examination; Z01.818 Encounter for other preprocedural examination; Z79.82 Long term (current) use of aspirin
CPT/HCPCS: 15830; 15847; 19318; 36415; 71046; 80053; 85025; 85610; 85730; 88305; 88342; 93005; J0171; J0690; J1100; J1885; J2001; J2250; J2405